=== PATIENT | female | born 1970 | race Caucasian/White ===

== ENCOUNTER 2020-11-01 11:57 | Outpatient (REF) | payer MEDICAID, SELFPAY | END 2020-11-01 11:58 | disposition home or self-care (01) | LOC: HO.LAB 11:57 | PROVIDERS: Visit Provider Internal Medicine | DX: Z20.822 Contact with and (suspected) exposure to COVID-19 (principal) | CPT/HCPCS: 36415; C9803; U0003; U0005 ==

== ENCOUNTER 2021-01-08 09:19 | Outpatient (REF) | payer MEDICAID, SELFPAY ==
[2021-01-08 09:47] LABS: COVID-19 Test Negative (Negative)
== END 2021-01-08 09:20 | disposition home or self-care (01) ==
LOC: HO.LAB 09:19
PROVIDERS: Visit Provider Internal Medicine
DX: Z20.822 Contact with and (suspected) exposure to COVID-19 (principal)
CPT/HCPCS: 36415; 87635; C9803

== ENCOUNTER 2021-01-24 15:01 | Outpatient (REF) | payer MEDICAID, SELFPAY ==
[2021-01-24 15:22] LABS: COVID-19 Test Negative (Negative); IDNOW Serial# 55D5AD1C
== END 2021-01-24 15:02 | disposition home or self-care (01) ==
LOC: HO.LAB 15:01
PROVIDERS: Visit Provider Internal Medicine
DX: Z20.822 Contact with and (suspected) exposure to COVID-19 (principal)
CPT/HCPCS: 36415; 87635; C9803

== ENCOUNTER 2023-03-19 10:56 | Outpatient (REF) | payer MEDICAID, SELFPAY ==
[2023-03-19 14:50] LABS: Estimated Average Glucose 171 mg/dL; Hemoglobin A1c % 7.6 %
[2023-03-19 16:10] LABS: Iron 76 mcg/dL (30-160); Percent Iron Saturation 26 % (15-50); Total Iron Binding Capacity 288 mcg/dL (228-428); Unsaturated Iron Binding 212 ug/dL
[2023-03-19 16:30] LABS: Ferritin 72 ng/mL (10-250); TSH reflex Free T4 1.36 uIU/mL (0.32-4.0)
[2023-03-24 07:13] LABS: Gliadin Deamidated IgA Ab <1.0 U/mL; Gliadin Deamidated IgG Ab <1.0 U/mL; Transglutaminase Ab IgG 1.3 U/mL; Transglutaminase IgA <1.0 U/mL
[2023-03-24 15:54] LABS: Immunoglobulin A 169 mg/dL (47-310)
[2023-03-25 15:53] LABS: Endomysial IgA Antibody Negative (Negative)
== END 2023-03-19 10:57 | disposition home or self-care (01) ==
LOC: HO.CHCLDS 10:56
PROVIDERS: Visit Provider Pediatrics
DX: R53.82 Chronic fatigue, unspecified (principal); G56.10 Other lesions of median nerve, unspecified upper limb
CPT/HCPCS: 36415; 82728; 82784; 83036; 83540; 84443; 86231; 86258; 86364

== ENCOUNTER 2023-04-18 13:55 | Outpatient (REF) | payer MEDICAID, SELFPAY ==
[2023-04-18 17:44] LABS: MANUAL DIFF FLAG NO
[2023-04-18 17:57] LABS: Basophils Percent Auto 0.2 % (0-2); Eosinophils Absolute Auto 0.1 X10*3/uL (0.0-0.4); Eosinophils Percent Auto 0.5 % (0-4); Hematocrit 38.4 % (37.0-47.0); Hemoglobin 12.4 g/dl (12.0-16.0); Imm Gran Abs Auto 0.03 X10*3/uL (0.00-0.03); Imm Gran Pct Auto 0.3 % (0.0-0.4); Lymphocytes Absolute Auto 2.6 X10*3/uL (1.2-4.9); Lymphocytes Percent Auto 23.7 % (20-40); Mean Corpuscular HGB Conc 32.3 g/dl (31.0-35.0); Mean Corpuscular Hemoglobin 28.9 pg (27.0-33.0); Mean Corpuscular Volume 89.5 fL (80.0-98.0); Mean Platelet Volume 10.7 fL (9.4-12.3); Monocytes Absolute Auto 0.7 X10*3/uL (0.1-1.2); Monocytes Percent Auto 6.1 % (2-11); Neutrophils Absolute Auto 7.6 x10*3/uL (2.0-8.3); Neutrophils Percent Auto 69.2 % (45-73); Platelet Count 285 X10*3/uL (160-400); Red Blood Count 4.29 X10*6/uL (4.20-5.50); Red Cell Distribution Width 13.7 % (11.0-16.0); White Blood Count 10.9 X10*3/uL (4.8-10.8)
[2023-04-18 18:11] LABS: Anion Gap 14 (12-20); Blood Urea Nitrogen 17 mg/dL (9-16); Calcium 9.7 mg/dL (8.4-10.2); Carbon Dioxide 25 mmol/L (22-29); Chloride 106 mmol/L (96-108); Estimated Glomerular Filt Rate > 60; Glucose Random 215 mg/dL (60-115); Magnesium 1.8 mg/dL (1.6-2.6); Potassium 3.7 mmol/L (3.3-5.1); Sodium 141 mmol/L (135-145)
[2023-04-18 18:27] LABS: TSH reflex Free T4 0.76 uIU/mL (0.32-4.0); Vitamin D 25-OH Total 52.1 ng/mL (>30)
== END 2023-04-18 13:56 | disposition home or self-care (01) ==
LOC: HO.CHCLDS 13:55
PROVIDERS: Visit Provider Internal Medicine
DX: R25.2 Cramp and spasm (principal); R53.83 Other fatigue
CPT/HCPCS: 36415; 80048; 82306; 83735; 84443; 85025

== ENCOUNTER 2023-08-22 11:51 | Outpatient (REF) | payer MEDICAID, SELFPAY ==
[2023-08-22 14:51] LABS: MANUAL DIFF FLAG NO
[2023-08-22 14:59] LABS: Basophils Percent Auto 0.3 % (0-2); Eosinophils Percent Auto 0.2 % (0-4); Hematocrit 41.4 % (37.0-47.0); Hemoglobin 13.1 g/dl (12.0-16.0); Imm Gran Abs Auto 0.04 X10*3/uL (0.00-0.03); Imm Gran Pct Auto 0.4 % (0.0-0.4); Lymphocytes Absolute Auto 2.7 X10*3/uL (1.2-4.9); Lymphocytes Percent Auto 25.9 % (20-40); Mean Corpuscular HGB Conc 31.6 g/dl (31.0-35.0); Mean Corpuscular Hemoglobin 28.2 pg (27.0-33.0); Mean Platelet Volume 9.9 fL (9.4-12.3); Monocytes Absolute Auto 0.6 X10*3/uL (0.1-1.2); Neutrophils Absolute Auto 6.9 x10*3/uL (2.0-8.3); Neutrophils Percent Auto 67.2 % (45-73); Platelet Count 318 X10*3/uL (160-400); Red Blood Count 4.65 X10*6/uL (4.20-5.50); Red Cell Distribution Width 14.2 % (11.0-16.0); White Blood Count 10.3 X10*3/uL (4.8-10.8)
[2023-08-22 15:11] LABS: Estimated Average Glucose 220 mg/dL; Hemoglobin A1c % 9.3 % (<6.0)
[2023-08-22 15:12] LABS: Anion Gap 15 (12-20); Blood Urea Nitrogen 13 mg/dL (9-16); Calcium 9.5 mg/dL (8.4-10.2); Carbon Dioxide 25 mmol/L (22-29); Chloride 102 mmol/L (96-108); Estimated Glomerular Filt Rate > 60; Glucose Random 214 mg/dL (60-115); Magnesium 2.2 mg/dL (1.6-2.6); Sodium 138 mmol/L (135-145)
[2023-08-22 15:30] LABS: Ferritin 105 ng/mL (10-250); TSH reflex Free T4 0.67 uIU/mL (0.32-4.0)
== END 2023-08-22 11:52 | disposition home or self-care (01) ==
LOC: CF 11:51
PROVIDERS: Pediatrics; Visit Provider Family Medicine
DX: G25.81 Restless legs syndrome (principal); E11.9 Type 2 diabetes mellitus without complications
CPT/HCPCS: 36415; 80048; 82728; 83036; 83735; 84443; 85025

== ENCOUNTER 2025-01-24 10:23 | Outpatient (REF) | payer MEDICAID, SELFPAY ==
--- NOTE | ~2025-01-24 | XR_ITS ---
EXAMINATION: XR CERVICAL SPINE CLINICAL INFORMATION: neck pain COMPARISON: None available. TECHNIQUE: 2 views of the cervical spine were obtained. FINDINGS: No significant scoliosis. Straightening of the normal lordosis. Normal alignment without subluxation. Craniocervical junction and C1-2 articulation are intact and aligned. No fractures, compression deformities, or suspicious bone lesions. Mild degenerative disc changes present C4-C7. Facets are normally aligned with mild multilevel facet degeneration. No prevertebral or paravertebral soft tissue abnormality. Imaged lung apices clear. XR/XR cervical spine 2V IMPRESSION: 1. No acute findings of the cervical spine. 2. Mild degenerative spondylosis. Electronically signed by: Brennen Escamilla MD 01/24/2025 10:43 AM EDT
--- OUTSIDE RECORDS SUMMARY | 2025-01-24 10:59 | XMS_ITS | Encounter Summary ---
Author Organization [employer] Address [address] [place] [address] Care Team Providers Care Pulp Mixer Name Role Phone Ericka Edmonds MD Primary Care Provider [phone] Encounter Details Date Type Department Care Team ([facility] st Contact Info) Description 01/24/2025 9:45 AM EDT Office Visit [facility] [address] [place] [address] CalderónMilton Davidson MD [address] [place] [address] Neck pain (Primary Dx); Type 2 diabetes mellitus without complication, without long-term current use of insulin ([facility]) Social History Tobacco Use Types Packs/Day Years Used Date Smoking Tobacco: Never Passive Smoke Exposure: Never Smokeless Tobacco: Never Depression Answer Date Recorded Patient Health Questionnaire-9 Score 6 01/04/2025 Patient Health Questionnaire-9 Score 6 01/04/2025 Last PHQ-9: Questionnaire Data Not on file 0 01/04/2025 Housing Stability Answer Date Recorded What is your housing situation today? I have yennylinwood norman 06/24/[address] you li ve. Do you have problems with any of the following? None of the above 06/24/2024 Food Insecurity Answer Date Recorded Within the past 12 months, y ou worried that your food would run out before you got money to buy more: Never True 12/23/2024 Within the past 12 months,th e food you bought just didn't last and you didn't have enough money to get more: Never True Transportation Answer Date Recorded In the past 12 months, has l ack of transportation kept you from medical appts, meetings, work or from getting things needed for daily living? No 06/24/2024 Utilities Answer Date Recorded In the past 12 months, has t he electric, gas, oil or water company threatened to shut off services in your home? No 06/24/2024 Depression Answer Date Recorded Patient Health Questionnaire-2 Score 0 01/04/2025 Internet Access Answer Date Recorded Internet Access Q1 Yes 06/24/2024 Internet Access Q2 Not on file 06/24/2024 Comments No Sex and Gender Information Value Date Recorded Sex Assigned at Female 07/08/2022 10:14 AM EDT Legal Sex Female 10:14 AM EDT Gender Identity Female 07/08/2022 10:14 AM EDT Sexual Orientation Straight 07/08/2022 10 :14 AM EDT documented as of this encounter Last Filed Vital Signs Vital Sign Reading Time Taken Comments Blood Pressure 132/78 01/24/2025 9:43 AM EDT Pulse 68 01/24/2025 9:43 AM EDT Temperature 37.1 ??C (98.7 ??F) 01/24/2025 9:43 AM ED T Respiratory Rate 16 01/24/2025 9:43 AM EDT Oxygen Saturation - - Inhaled Oxygen Concentration - - Weight 95.3 kg (210 lb) 01/24/2025 9:43 AM EDT Height 160 cm (5' 3 ) 01/24/2025 9:43 AM EDT Body Mass Index 37.2 01/24/2025 9:43 AM EDT documented in this encounter Plan of Treatment Upcoming Encounters Date Type Department Care Team (Late st Contact Info) Description 04/20/2025 10:00 AM EDT Office Visit [facility] OPTOMETRY [address] [place] [address] Vita Olmedo, OD [address] [place] [address] documented as of this encounter Procedures Procedure Name Priority Date/Time Associated Diagnosis Comments XR CERVICAL SPINE 2V Routine 01/24/2025 10:27 AM EDT POCT GLUCOSE Routine 01/24/2025 9:44 AM EDT Type 2 diabetes mellitus without complication, without long-term current use of insulin ([facility]) documented in this encounter Results * XR CERVICAL SPINE 2V (01/24/2025 10:27 AM EDT) Anatomical Region Laterality Modality Abdomen Radiographic Lida ging 01/24/2025 10:2 7 AM EDT Narrative 01/24/2025 10:46 AM EDT ? [facility] ?[address] ? [place] [address] ?XRay Report ? Signed ? Patient: Crissy Lombardi ?MR#: [id number] ? : 1970 ?Acct:[id number] ? Age/Sex: 54 / F ?ADM Date: 01/24/25 ? Loc: HO.HMGCX ? Attending Dr: Milton Mahan MD ? Ordering Physician: Milton Frias MD ?? Date of Service: 01/24/25 ?? Procedure(s): XR cervical spine 2V ?? Accession Number(s): [id number] ? cc: Ericka Edmonds MD; Milton Frias MD ? EXAMINATION: ?? XR CERVICAL SPINE ? CLINICAL INFORMATION: ?? neck pain ? COMPARISON: ?? None available. ? TECHNIQUE: ?? 2 views of the cervical spine were obtained. ? FINDINGS: ?? No significant scoliosis. Straightening of the normal lordosis. ?? Normal alignment without subluxation. ?? Craniocervical junction and C1-2 articulation are intact and aligned. ?? No fractures, compression deformities, or suspicious bone lesions. ? Mild degenerative disc changes present C4-C7. ?? Facets are normally aligned with mild multilevel facet degeneration. ? No prevertebral or paravertebral soft tissue abnormality. Imaged lung ?? apices clear. ? XR/XR cervical spine 2V ?? IMPRESSION: ? 1. No acute findings of the cervical spine. ?? 2. Mild degenerative spondylosis. ? Electronically signed by: ??Brennen Escamilla MD ??01/24/2025 10:43 AM EDT RP ? Dictated By: ?Brennen Escamilla MD ? Signed By: ?<Electronically signed by Brennen Escamilla MD in OV> ?01/24/25 1043 ? DD/ 1027 ? TD/TT: 01/24/25 1033 ? Sql Server Dba Developer: ? Procedure Note Edgar, Image - 01/24/2025 [facility] [place] [address] XRay Report Signed Patient: Ever Lombardi#: [id number] : 1970Acct:[id number] Age/Sex: 54 / FADM Date: 01/24/25 Loc: HO.HMGCX Attending Dr: Milton Mahan MD Ordering Physician: Milton Frias MD Date of Service: 01/24/25 Procedure(s): XR cervical spine 2V Accession Number(s): [id number] cc: Ericka Edmonds MD; Milton Frias MD EXAMINATION: XR CERVICAL SPINE CLINICAL INFORMATION: neck pain COMPARISON: None available. TECHNIQUE: 2 views of the cervical spine were obtained. FINDINGS: No significant scoliosis. Straightening of the normal lordosis. Normal alignment without subluxation. Craniocervical junction and C1-2 articulation are intact and aligned. No fractures, compression deformities, or suspicious bone lesions. Mild degenerative disc changes present C4-C7. Facets are normally aligned with mild multilevel facet degeneration. No prevertebral or paravertebral soft tissue abnormality. Imaged lung apices clear. XR/XR cervical spine 2V IMPRESSION: 1. No acute findings of the cervical spine. 2. Mild degenerative spondylosis. Electronically signed by: Brennen Escamilla MD 01/24/2025 10:43 AM EDT Dictated By: Brennen Escamilla MD Signed By: <Electronically signed by Brennen Escamilla MD in OV> 01/24/25 1043 DD/ 1027 TD/TT: 01/24/25 1033 Sql Server Dba Developer: Milton Mahan MD IMG XR PROCEDURES Edited Result - Final * (ABNORMAL) POCT Glucose (01/24/2025 9:44 AM EDT) Glucose Blood, POC 235(A) 60 - 200 mg/dL QC Media Lot # [id number] Lot# Expiration Date Blood Capillary blood specimen / Unknown 01/24/2025 9:44 AM EDT Milton Mahan MD POINT OF C ARE TEST ENTER/EDIT ORDERABLES Edited Result - Final documented in this encounter Visit Diagnoses Diagnosis Neck pain- Primary Cervicalgia Type 2 diabetes mellitus without complication, without long-term current use of insulin ([facility]) documented in this encounter Additional Health Concerns Assessment Noted Time PHQ-9 Depression Total Score: 6 01/05/20 25 9:50 AM EDT documented as of this encounter Care Teams Pulp Mixer Relationship Specialty Start Date End Date Ericka Edmonds MD [address] [place] [id number] PCP - General Family Medicine 09/08/18 documented as of this encounter
--- OUTSIDE RECORDS SUMMARY | 2025-01-24 10:59 | XMS_ITS | Encounter Summary ---
Author Organization [employer] Address [address] [place] [address] Care Team Providers Care Graphic Technician Name Role Phone Ericka Edmonds MD Primary Care Provider [phone] Encounter Details Date Type Department Care Team (Latest Contact Info) Description 01/24/2025 Travel Social History Tobacco Use Types Packs/Day Years Used Date Smoking Tobacco: Never Passive Smoke Exposure: Never Smokeless Tobacco: Never Depression Answer Date Recorded Patient Health Questionnaire-9 Score 6 01/04/2025 Patient Health Questionnaire-9 Score 6 01/04/2025 Last PHQ-9: Questionnaire Data Not on file 0 01/04/2025 Housing Stability Answer Date Recorded What is your housing situation today? I have yenny norman 06/24/[address] you [...] AM EDT documented as of this encounter Plan of Treatment Upcoming Encounters Date Type Department Care Team (Late st Contact Info) Description 04/20/2025 10:00 AM EDT Office Visit [facility] OPTOMETRY [address] [place], [place] [id number] Honorio, Vita, OD [address] [place] [address] documented as of this encounter Visit Diagnoses Not on filedocumented in this encounter Additional Health Concerns Assessment Noted Time PHQ-9 Depression Total Score: 6 01/05/20 25 9:50 AM EDT documented as of this encounter Care Teams Graphic Technician Relationship Specialty Start Date End Date Ericka Edmonds MD [address] [place] [address] PCP - General Family Medicine 09/08/18 documented as of this encounter
--- OUTSIDE RECORDS SUMMARY | 2025-01-24 10:59 | XMS_ITS | Encounter Summary ---
Author Organization [employer] Address [address] [place] [address] Care Team Providers Care Raw Sampler Name Role Phone Ericka Edmonds MD Primary Care Provider [phone] Encounter Details Date Type Department Care Team ([facility] st Contact Info) Description 07/18/2023 Abstract [facility] [address] [place] [address] Aylin Carrion Social History Tobacco Use Types Packs/Day Years Used Date Smoking Tobacco: Never Passive Smoke Exposure: Never Smokeless Tobacco: Never Depression Answer Date Recorded Patient Health Questionnaire-9 Score 2 04/30/2023 Housing Stability Answer Date Recorded What is your housing situation today? I have yenny norman 06/23/[address] you li ve. Do you have problems with any of the following? None of the above 06/23/2023 Food Insecurity Answer Date Recorded Within the past 12 months, y ou worried that your food would run out before you got money to buy more: Sometimes True 2022 Within the past 12 months,th e food you bought just didn't last and you didn't have enough money to get more: Never True 06/23/2023 Transportation Answer Date Recorded In the past 12 months, has l ack of transportation kept you from medical appts, meetings, work or from getting things needed for daily living? No 06/23/2023 Utilities Answer Date Recorded In the past 12 months, has t he electric, gas, oil or water company threatened to shut off services in your home? No 06/23/2023 Depression Answer Date Recorded Patient Health Questionnaire-2 Score 1 04/30/2023 Comments Unknown Sex and Gender Information Value Date Recorded [...] Office Visit [facility] OPTOMETRY [address] [place] [address] Honorio, Vita, OD [address] [place] [address] documented as of this encounter Procedures Procedure Name Priority Date/Time Associated Diagnosis Comments COLONOSCOPY Routine 07/04/2022 documented in this encounter Results * Hm Colonoscopy (07/04/2022) Colonoscopy Normal Normal Narrative Aylin Carrion - 07/04/2022 Recommended 3 year follow up us Historical Provider HEALTH MAINTENANCE Edited Result - Final documented in this encounter Visit Diagnoses Not on filedocumented in this encounter Additional Health Concerns Assessment Noted Time PHQ-9 Depression Total Score: 2 04/30/20 23 9:15 AM EDT documented as of this encounter Care Teams Raw Sampler Relationship Specialty Start Date End Date Ericka Edmonds MD [address] [place] [address] PCP - General Family Medicine 09/08/18 documented as of this encounter
--- OUTSIDE RECORDS SUMMARY | 2025-01-24 10:59 | XMS_ITS | Clinical Summary ---
Author Organization [employer] Address [address] [facility] [address] [place] [address] Care Team Providers Care Slabbing Machine Operator Name Role Phone Ericka Edmonds MD Primary Care Provider [phone] Allergies Active Allergy Reactions Criticality Noted Date Comments Azithromycin Rash High 03/02/2013 Other reaction(s): Hives, SOB Clarithromycin Rash Low 04/27/2024 Dulaglutide 10/22/2022 Penicillin V Unknown 08/24/2010 Penicillins Rash Low 08/24/2010 Medications fluticasone (Flonase) 50 MCG/ACT nasal spray Administer 1 spray into each nostril in the morning. 16 g 3 023 Active Elastic Bandages & Supports (TruForm Stockings 10-20mmHg) miscIndications: Venous insufficiency Thigh high 10-20 mm/Hg compression stockings to wear daily prior to getting out of bed. 1 each 023 Active Magnesium 400 MG capsule Take 1 capsule orally daily 90 capsule 3 023 Active Alcohol Swabs (SM Alcohol Prep) 70 % pads Apply 1 Units topically 3 times daily. USE 3 TIMES DAILY TO CHECK BLOOD SUGARS 100 each 11 023 Active metoprolol succinate XL (Toprol-XL) 25 MG 24 hr tablet Take 25 mg by mouth in the morning. 023 Active triamcinolone (Kenalog) 0.025 % cream Apply topically 2 times daily. 30 g 023 Active methocarbamol (Robaxin) 750 MG tablet TAKE ONE TABLET BY MOUTH FOUR TIMES DAILY FOR 10 DAYS 40 tablet 023 Active pramipexole (Mirapex) 0.125 MG tablet Take 1 tablet (0.125 mg) by mouth 2 times daily. 60 tablet 023 Active ketotifen (Zaditor) 0.025 % ophthalmic solution INSTILL ONE DROP IN EACH EYE EVERY DAY FOR ALLERGY 10 mL 3 024 Active fexofenadine (Trini) 180 MG tablet Take 1 tablet (180 mg) by mouth in the morning. 90 tablet 3 024 Active triamcinolone (Kenalog) 0.025 % cream Apply topically 2 times daily. 30 g 3 024 Active lidocaine (Lidoderm) 5 % patchIndications :Trochanteric bursitis of left hip APPLY 1 PATCH TO SKIN, LEAVE ON FOR 12 HOURS NEEDED FOR PAIN 30 patch 5 024 Active albuterol (Ventolin HFA) 108 (90 Base) MCG/ACT inhaler TAKE 2 PUFFS BY MOUTH EVERY 4 HOURS NEEDED FOR WHEEZE 18 g 1 024 Active glucose blood (FREESTYLE LITE) test strip USE TO TEST BLOOD SUGAR 3 TIMES A DAY 100 strip 8 024 Active TRUEplus Lancets 33G misc TEST BLOOD SUGAR 3 TIMES A DAY 100 each 8 024 Active fluticasone (Flonase Allergy Relief) 50 MCG/ACT nasal sprayIndications :Allergy, initial encounter Administer 1 spray into each nostril Once per day. Shake gently. Before first use, prime pump. After use, clean tip and replace cap. 16 g 12 024 2024 Active omega-3 1000 MG capsule capsule TAKE 1 CAPSULE BY MOUTH TWICE A DAY 180 capsule 1 024 Active melatonin 5 MG tablet TAKE 2 TABLETS BY MOUTH AT BEDTIME 60 tablet 5 024 Active cholecalciferol VITAMIN D (Vitamin D-3) 50 MCG (2000 UT) capsuleIndicatio ns:Adjustment disorder with depressed mood TAKE 1 CAPSULE BY MOUTH TWICE A DAY 180 capsule 1 024 Active loratadine (Claritin) 10 MG tabletIndication s:Allergy, initial encounter TAKE 1 TABLET BY MOUTH EVERY DAY IN THE MORNING 90 tablet 1 024 Active metFORMIN (Glucophage) 1000 MG tablet TAKE 1 TABLET BY MOUTH TWICE A DAY 180 tablet 1 024 Active acetaminophen (Tylenol 8 Hour) 650 MG ER tabletIndication s:Disorder of skeletal muscle TAKE 1 TABLET BY MOUTH EVERY 8 HOURS NEEDED 60 tablet 5 025 Active hydroCHLOROthiaz miguelangel (HYDRODiuril) 25 MG tabletIndication s:Benign essential hypertension TAKE 1 TABLET BY MOUTH EVERY DAY IN THE MORNING 90 tablet 1 025 Active Ketotifen Fumarate 0.035 % solution INSTILL 1 DROP INTO EACH EYE ONCE DAILY FOR ALLERGIES 10 mL 3 025 Active magnesium oxide (Mag-Ox) 400 (240 Mg) MG tablet TAKE 1 TABLET BY MOUTH EVERY DAY 90 tablet 1 025 Active pregabalin (Lyrica) 150 MG capsule TAKE 1 CAPSULE BY MOUTH TWICE A DAY 60 capsule 3 025 Active ibuprofen 800 MG tabletIndication s:Median nerve neuritis, unspecified laterality TAKE 1 TABLET BY MOUTH 3 TIMES A DAY WITH FOOD NEEDED FOR PAIN 90 tablet 025 Active pramipexole (Mirapex) 0.125 MG tabletIndication s:RLS (restless legs syndrome) TAKE 1 TABLET BY MOUTH TWICE A DAY 60 tablet 025 Active Mounjaro 2.5 MG/0.5ML solution auto-injector INJECT ONE PEN (=2.5MG) SUBCUTANEOUSLY ONCE A WEEK DIRECTED Active omeprazole (PriLOSEC) [address] capsuleIndicatio ns:Gastroesophag eal reflux disease without esophagitis TAKE 1 CAPSULE BY MOUTH EVERY DAY BEFORE BREAKFAST 90 capsule 1 025 Active predniSONE (Deltasone) 20 MG tablet Take 2 tablets (40 mg) by mouth Once per day for 5 days. 10 tablet 025 2024 Active cyclobenzaprine (Flexeril) 10 MG tablet Take 1 tablet (10 mg) by mouth 3 times daily for 10 days. 30 tablet 025 2024 Active valACYclovir (Valtrex) 1 g tablet TAKE ONE TABLET BY MOUTH EVERY TWELVE HOURS UNTIL FINISHED. 022 2024 Discontinued(R eorder (will not trigger notification to Pharmacy)) omeprazole (PriLOSEC) [address] capsule Take 1 capsule (40 mg) by mouth before breakfast. 90 capsule 1 023 2024 Discontinued(T herapy completed) dulaglutide (Trulicity) 4.5 MG/0.5ML solution pen-injector Inject 4.5 mg under the skin 1 (one) time per week. 4 each 024 2024 Discontinued omeprazole (PriLOSEC) [address] capsuleIndicamega ns:Gastroesophag eal reflux disease without esophagitis TAKE 1 CAPSULE BY MOUTH EVERY DAY BEFORE BREAKFAST 90 capsule 1 024 2024 Discontinued ibuprofen 800 MG tabletIndication s:Median nerve neuritis, unspecified laterality TAKE 1 TABLET BY MOUTH 3 TIMES A DAY WITH FOOD NEEDED FOR PAIN 90 tablet 025 2024 Discontinued pramipexole (Mirapex) 0.125 MG tabletIndication s:RLS (restless legs syndrome) TAKE 1 TABLET BY MOUTH TWICE A DAY 60 tablet 025 2024 Discontinued valACYclovir (Valtrex) 1 g tablet Take 1 tablet (1,000 mg) by mouth 2 times daily for 10 days. 20 tablet 025 2024 Active Problems Problem Noted Date Diagnosed Date RLS (restless legs syndrome) 08/13/2023 Assessment & Plan (08/13/2023 3:42 PM EST): Patient that presented visit with complaints of RLS will be prescribed Pramipexole to ease concern. In addition, patient will be sent for labs for further evaluation. -Labs: Basic Met. Panel, CBC, Ferritin, Magnesium, TSH/FT4. Follow up with PCP. Lumbar radiculopathy 07/15/2023 07/15/2023 Class 2 obesity 07/15/2023 07/15/2023 Postviral fatigue syndrome 10/02/2022 Acute cough 10/02/2022 COVID 10/02/2022 Assessment & Plan (10/02/2022 9:03 AM EST): Patient refers symptoms started yesterday, tested positive for covid, refers having cough, fatigue, body aches, fever/chills. Kaylah offered, risk vs benefits discussed, told to remain well hydrated, in case of worsening symptoms visit er. Acute pharyngitis due to other specified organis ms 10/02/2022 Assessment & Plan (10/02/2022 9:07 AM EST): Patient was prescribed cleocyn but refers having episode of diarrhea, she completed 3 day of therapy, will provide doxycicline for 2 days Trochanteric bursitis of left hip 05/08/2018 Lumbar back pain with radicu lopathy affecting left lower extremity 02/11/2018 Median nerve neuritis 07/29/2017 Adjustment disorder with depressed mood 09/19/19 16 Benign essential hypertension 09/19/2015 Disorder of skeletal muscle 01/19/2014 Type 2 diabetes mellitus wit hout complication, without long-term current use of insulin 04/22/2013 Hypertension 02/19/2012 Assessment & Plan (08/13/2023 3:41 PM EST): Uncontrolled: patient presented visit with an elevated blood pressure with readings of 148/98 mmHg. Elevated reading could be due to current chief complaint. However if readings seem to be persistent, will adjust blood pressure medications. Obesity 02/19/2012 Resolved Problems Problem Noted Date Diagnosed Date Resolved Date Fatigue due to exposure 10/02/202209/09 Encounters Date Type Department Care Team Description 01/24/2025 9:45 AM EDT Office Visit [facility] [address] [place] [address] Milton Frias MD Neck pain (Primary Dx); Type 2 diabetes mellitus without complication, without long-term current use of insulin ([facility]) 01/24/2025 Travel 01/24/2025 Telephone [facility] [address] [place] [address] Ericka Edmonds MD Nurse Triage 01/22/2025 Refill [facility] [address] [place] [address] Ericka Edmonds MD Gastroesophageal reflux disease without esophagitis 01/04/2025 9:15 AM EDT Office Visit [facility] [address] [place] [address] Ericka Edmonds MD Breast cancer screening by mammogram (Primary Dx); Type 2 diabetes mellitus without complication, without long-term current use of insulin ([facility]); Transaminitis; Dietary counseling; Exercise counseling; Benign essential hypertension; Lumbar back pain with radiculopathy affecting left lower extremity; Routine general medical examination at a health care facility 01/04/2025 Travel 01/02/2025 Refill [facility] [address] [place] [address] Ericka Edmonds MD RLS (restless legs syndrome) 12/27/2024 Refill [facility] [address] [place] [address] Ericka Edmonds MD Median nerve neuritis, unspecified laterality 12/23/2024 Patient Outreach [facility] [address] [place] [address] Ericka Edmonds MD Pre-visit Planning (SDOH screening negative and Tobacco screening negative) 12/13/2024 Refill [facility] [address] [place] [address] Ericka Edmonds MD 12/02/2024 Telephone [facility] [address] [place] [address] Ericka Edmonds MD 12/02/2024 Orders Only [facility] [address] [place] [address] Luz Flannery MD 11/27/2024 Refill [facility] [address] [place] [address] Ericka Edmonds MD RLS (restless legs syndrome) 11/19/2024 Population Health Risk Score [facility] Department [address] [phone] Provider, Population Health Generic 11/13/2024 Refill [facility] [address] [place] [address] Milton Frias MD 10/27/2024 Refill [facility] [address] [place] [address] Ericka Edmonds MD RLS (restless legs syndrome) 10/27/2024 Refill [facility] [address] [place] [address] Milton Frias MD Benign essential hypertension; Median nerve neuritis, unspecified laterality from Last 3 Months Immunizations Immunization Administration Dates Next Due Influenza injectable quadriv alent IIV4 with preservative 07/14/2019,08/13/2018,07/15/2017,07/10,06/09/2015 Influenza injectable quadriv alent preservative free 06/26/2023,05/30/2022,08/01/2020 Influenza, IIV3, injectable 06/17/2014 Influenza, Split (incl. jaylen fied surface antigen) 05/18/2013,05/14/2012 Influenza, seasonal, injecta ble, preservative free 06/24/2024 MMR 04/01/2002 Pfizer Covid-19 Vaccine 12+ 12/13/2020, 1 Pneumococcal Polysaccharide PPSV23 05/18/2013, TD (adult), 2 Lf tetanus tox oid, preservative free, adsorbed 09/10/1993 Tdap 07/14/2019 Zoster, Recombinant 01/03/2023,11/01/2022 Social History Tobacco Use Types Packs/Day Years Used Date Smoking Tobacco: Never Passive Smoke Exposure: Never Smokeless Tobacco: Never Tobacco Cessation:Counseling Given: Not Answered Depression Answer Date Recorded Patient Health Questionnaire-9 Score 6 01/04/2025 Patient Health Questionnaire-9 Score 6 01/04/2025 Last PHQ-9: Questionnaire Data Not on file 0 01/04/2025 Housing Stability Answer Date Recorded What is your housing situation today? I have yenny emerson 06/24/[address] you li [...] Orientation Straight 07/08/2022 10 :14 AM EDT Last Filed Vital Signs Vital Sign Reading Time Taken Comments Blood Pressure 132/78 01/24/2025 9:43 AM EDT Pulse 68 01/24/2025 9:43 AM EDT Temperature 37.1 ??C (98.7 ??F) 01/24/2025 9:43 AM ED T Respiratory Rate 16 01/24/2025 9:43 AM EDT Oxygen Saturation 97% 06/24/2024 9:22 AM EDT Inhaled Oxygen Concentration - - Weight 95.3 kg (210 lb) 01/24/2025 9:43 AM EDT Height 160 cm (5' 3 ) 01/24/2025 9:43 AM EDT Body Mass Index 37.2 01/24/2025 9:43 AM EDT Plan of Treatment Upcoming Encounters Date Type Department Care Team (Late st Contact Info) Description 04/20/2025 10:00 AM EDT Office Visit [facility] [address] [place] [address] Honorio, Vita, OD [address] [place] [address] Health Maintenance Due Date Last Done Comments CT Colonography 1969 FIT DNA/Cologuard 1969 FIT 1970 FOBT 1970 HIV Screening 1970 Sigmoidoscopy 1970 Disability Screening 1969 Hepatitis C Screening 1987 Hepatitis B Vaccines (1 of 3 - 19+ 3-dose series) 1988 Pneumococcal Vaccine: 50+ Years (2 of 2 - PCV) 05/18/2014 05/18/2013, 03/05/2013 Lipid Panel 05/30/2023 05/30/2022, 09/09, 01/10/2021 COVID-19 Vaccine ( season) 2024 08/06/2023, 12/13/2020, 11/21/2020 Diabetes: Hemoglobin A1C 03/03/2025 025, 12/01/2024, 06/24/2024, Additional history exists Alcohol/Substance Use Screening 06/24/2025 06/24/2024 Colonoscopy 07/04/2025 07/04/2022 Colorectal Cancer Screening 07/04/2025 Cervical Cancer Screening 08/01/2025 HPV/Cotest 08/01/2025 08/01/2020 Pap Smear 08/01/2025 08/01/2020 Eye Exam 11/09/2025 11/10/2023, 03/0 12/2023, 11/10/2023, Additional history exists Diabetes: Urine Protein Screening 12/01/2025 12/01/2024, 05/30/2022, 10/04/2021, Additional history exists SDOH Screening 12/23/2025 12/23/2024 Depression Screening 01/04/2026 01/04/2025, 01/05/20 25 Diabetes: Foot Exam 01/04/2026 01/04/2025, 01/04/2025, 01/04/2025, Additional history exists Tobacco Screening 01/04/2026 01/04/2025 Mammogram 01/14/2027 01/14/2025, 12/18/2023 DTaP/Tdap/Td Vaccines (2 - Td or Tdap) 07/14/2029 07/14/2019, 09/10/1993 RSV Patients and Patients Aged 60 years or older (1 - 1-dose 75+ series) 2044 Zoster Vaccines Completed 01/03/2023, 11/01/2022 Influenza Vaccine Completed 06/24/2024, , 05/30/2022, Additional history exists HIB Vaccines Aged Out No longer eligi ble based on patient's age to complete this topic HPV Vaccines Aged Out No longer eligi ble based on patient's age to complete this topic Hepatitis A Vaccines Aged Out No long er eligible based on patient's age to complete this topic IPV Vaccines Aged Out No longer eligi ble based on patient's age to complete this topic Meningococcal B Vaccine Aged Out No l onger eligible based on patient's age to complete this topic Meningococcal Vaccine Aged Out No nunu ginny eligible based on patient's age to complete this topic RSV under 20 months Aged Out No longe r eligible based on patient's age to complete this topic Rotavirus Vaccines Aged Out No longer eligible based on patient's age to complete this topic Procedures Procedure Name Priority Date/Time Associated Diagnosis Comments XR CERVICAL SPINE 2V Routine 01/24/2025 10:27 AM EDT POCT GLUCOSE Routine 01/24/2025 9:44 AM EDT Type 2 diabetes mellitus without complication, without long-term current use of insulin ([facility]) HM MAMMOGRAPHY Routine 01/14/2025 POCT GLUCOSE Routine 01/04/2025 9:37 AM EDT Type 2 diabetes mellitus without complication, without long-term current use of insulin ([facility]) HEMOGLOBIN A1C Routine 12/01/2024 9:01 AM EDT COMPREHENSIVE METABOLIC PANEL Routine 12/01/2024 9:00 AM EDT ALBUMIN/CREATININE RATIO, TIMED URINE Routine 12/01/2024 8:58 AM EDT HM COLONOSCOPY Routine 07/04/2022 LIPID PANEL, STANDARD Routine 05/30/2022 10:57 AM EDT HPV MRNA E6/E7 Routine 08/01/2020 1:18 PM EST THINPREP PAP Routine 08/01/2020 1:18 PM EST from Last 3 Months or Most Recently Relevant to Health Maintenance Results * XR CERVICAL SPINE 2V (01/24/2025 10:27 AM EDT) Anatomical Region Laterality Modality Abdomen Radiographic Lida ging 01/24/2025 10:2 7 AM EDT Narrative 01/24/2025 10:46 AM EDT ? [facility] ?[address] [facility] . ? [place] [address] ?XRay Report ? Signed ? Patient: Lombardi,Crissy ?MR#: [id number] ? : 1970 ?Acct:[id number] ? Age/Sex: 54 / F ?ADM Date: 01/24/25 ? Loc: HO.HMGCX ? Attending Dr: Milton Mahan MD ? Ordering Physician: Milton Frias MD ?? Date of Service: 01/24/25 ?? Procedure(s): XR cervical spine 2V ?? Accession Number(s): [id number] ? cc: Ericka Edmonds MD; Milton Frias [...] DD/ 1027 ? TD/TT: 01/24/25 1033 ? Priest: ? Procedure Note Donotuseinterpreter, Image - 01/24/2025 [facility] [place] [address] XRay Report Signed Patient: Ever Lombardi#: [id number] : 1970Acct:[id number] Age/Sex: 54 / FADM Date: 01/24/25 Loc: HO.HMGCX Attending Dr: Milton Mahan MD Ordering Physician: Milton Frias MD Date of Service: 01/24/25 Procedure(s): XR cervical spine 2V Accession Number(s): [id number] cc: Ericka Edmonds MD; Milton Frias MD [...] 01/24/25 1043 DD/ 1027 TD/TT: 01/24/25 1033 Priest: us Milton Mahan MD IMG XR PROCEDURES Edited Result - Final * (ABNORMAL) POCT Glucose (01/24/2025 9:44 AM EDT) Only the most recent of2 resultswithin the time period is included. Pathologist [facility] Glucose Blood, POC 235(A) 60 - 200 mg/dL QC Media Lot # [id number] Lot# Expiration Date 439 Blood Capillary blood specimen / Unknown 01/24/2025 9:44 AM EDT Result [facility] Milton Mahan MD POINT OF C ARE TEST ENTER/EDIT ORDERABLES Edited Result - Final * Mammography (01/14/2025) Mammogram Normal Normal, Abnormal, BIRADS 1 , BIRADS 2 Anatomical Region Laterality Modality Other Result [facility] Ericka Edmonds MD HEALTH MAINTENANCE Final Resu lt * Hemoglobin A1c (12/01/2024 9:01 AM EDT) Blood Venous blood specimen / Unknown Result [facility] Provider LAB BLOOD ORDERABLES Liana l Result * Comprehensive Metabolic Panel (12/01/2024 9:00 AM EDT) Blood Venous blood specimen / Unknown Result [facility] Provider LAB BLOOD ORDERABLES Liana l Result * Albumin/Creatinine Ration, Timed Urine (12/01/2024 8:58 AM EDT) Urine Urine specimen obtained by clean catch procedure / Unknown Result [facility] Provider LAB URINE ORDERABLES Liana l Result * Colonoscopy (07/04/2022) Pathologist [facility] Colonoscopy Normal Normal Narrative Aylin Carrion - 07/04/2022 Recommended 3 year follow up Result [facility] Provider HEALTH MAINTENANCE Edited Result - Final * (ABNORMAL) LIPID PANEL, STANDARD (05/30/2022 10:57 AM EDT) Pathologist [facility] Chol/HDLC Ratio 3.5 <5.0 (calc) [facility] Cholesterol, Total 184 <200 mg/dL [facility] HDL Cholesterol 53 > OR = 50 mg/dL [facility] LDL Cholesterol 101(H) mg/dL (calc) [facility] Comment: Reference range: <100 ?? Desirable range <100 mg/dL for primary prevention; ?? <70 mg/dL for patients with CHD or diabetic patients ?? with > or = 2 CHD risk factors. ?? LDL-C is now calculated using the Sarahi ?? calculation, which is a validated novel method providing ?? better accuracy than the Friedewald equation in the ?? estimation of LDL-C. ?? Brayden NIEVES et al. JALEN. 2013;310(19): 3343-9160 ?? (http://education.[employer]/faq/FYN426) Non-HDL Cholesterol 131(H) <130 mg/dL (calc) [facility] Comment: For patients with diabetes plus 1 major ASCVD risk ?? factor, treating to a non-HDL-C goal of <100 mg/dL ?? (LDL-C of <70 mg/dL) is considered a therapeutic ?? option. Triglycerides 188(H) <150 mg/dL [facility] 05/30/2022 10:5 7 AM EDT Ericka Edmonds MD LAB BLOOD ORDERABLES Final Re sult [facility] [address] [place] [address], * THINPREP PAP (08/01/2020 1:18 PM EST) Clinical Information: None given [facility] COMMENT SEE COMMENT [facility] Comment: EXPLANATORY NOTE: ? The Pap is a screening test for cervical cancer. It is ?? not a diagnostic test and is subject to false negative ?? and false positive results. It is most reliable when a ?? satisfactory sample, regularly obtained, is submitted ?? with relevant clinical findings and history, and when ?? the Pap result is evaluated along with historic and ?? current clinical information. ?? [facility] : SEE COMMENT [facility] Comment: DMM, CT(ASCP) CT screening location: [facility] ??[address] Interpretation/R esult: Negative for intraepithelial lesion or malignancy. [facility] LMP: NONE GIVEN [facility] Prev. BX: NONE GIVEN [facility] Prev. PAP: NONE GIVEN [facility] SOURCE: None given [facility] Statement Of Adequacy: SEE COMMENT [facility] Comment: Satisfactory for evaluation. Endocervical/transformation zone component present. Age and/or menstrual status not provided 08/01/2020 1:18 PM EST [facility] ORDERABLES Final Result Performing Organization Address [facility] de Phone Number [facility] [address] * HPV mRNA E6/E7 (08/01/2020 1:18 PM EST) HPV nRNA E6/E7 Not Detected Not Detected [facility] Comment: This test was performed using the APTIMA HPV Assay ([employer] This assay detects E6/E7 viral messenger RNA (mRNA) from 14 high-risk HPV types (16,18,31,33,35,39,45,51,52,56,58,59,66,68). ?? The analytical performance characteristics of this assay have been determined by [employer]. The modifications have not been cleared or approved by the FDA. This assay has been validated pursuant to the CLIA regulations and is used for clinical purposes. 08/01/2020 1:18 PM EST [facility] LAB BLOOD ORDERABLES Liana l Result Performing Organization Address [facility] Co de Phone Number [facility] [address] from Last 3 Months or Most Recently Relevant to Health Maintenance Insurance [facility] C[facility] * Guarantor: Crissy Lombardi Account Type Relation to Patient Date of Phone Billing Address Personal/Family Self KATIE PARRA13 * Guarantor: Crissy Lombardi Account Type Relation to Patient Date of Phone Billing Address Personal/[place] [address] * Guarantor: Lombardi Crissy Account Type Relation to Patient Date of Phone Billing Address Personal/Family Self KATIE PARRA13 Care Teams Slabbing Machine Operator Relationship Specialty Start Date End Date Ericka Edmonds MD [address] [place] [address] [place]g [id number] PCP - General Family Medicine 09/08/18
--- OUTSIDE RECORDS SUMMARY | 2025-01-24 11:00 | XMS_ITS | Encounter Summary ---
Author Organization [employer] Address [address] [facility] 7t [place] [address] Care Team Providers Care Director Human Services Name Role Phone Ericka Edmonds MD Primary Care Provider [phone] Reason for Visit * Reason Onset Date Comments ER Follow-up 11/27/2023 Encounter Details Date Type Department Care Team ([facility] st Contact Info) Description 11/27/2023 Telephone [facility] MEDICINE [address] [place] [address] Ericka Edmonds MD [address] [place], [place] [id number] ER Follow-up Social History Tobacco Use Types Packs/Day Years Used Date Smoking Tobacco: Never Passive Smoke Exposure: Never Smokeless Tobacco: Never Depression Answer Date Recorded Patient Health Questionnaire-9 Score 0 09/17/2023 Patient Health Questionnaire-9 Score 0 09/17/2023 Last PHQ-9: Questionnaire Data Not on file 0 09/17/2023 Housing Stability Answer Date Recorded What is [...] Date Recorded Patient Health Questionnaire-2 Score 0 09/17/2023 Comments No Sex and Gender Information Value Date Recorded Sex Assigned at Female 07/08/2022 10:14 AM EDT Legal Sex Female 10:14 AM EDT Gender Identity Female 07/08/2022 10:14 AM EDT Sexual Orientation Straight 07/08/2022 10 :14 AM EDT documented as of this encounter Miscellaneous Notes * Telephone Encounter - Marino Bo RN - 11/27/2023 4:21 PM EDT T/C to pt. For below message, pt. Has recent ED visit at [facility] for SVT (supraventricular tachycardia). Pt. Schedule for ED follow up on 12/09. Pt. Also advised to go to nearest ED in case of any new orworsening symptoms. Pt. Verbally agreed and understood. ED discharge summery is in opt.'s chart. * Telephone Encounter - Jacinto Green - 11/27/2023 10:43 AM EDT Patient calling to report ED visit on : Date: 11/18/23 Hospital: [facility] Seen for: Heart attack Patient advised will forward to team nurse for follow up Czech Speaker documented in this encounter Plan of Treatment Upcoming Encounters Date Type Department Care Team (Late st Contact Info) Description 04/20/2025 10:00 AM EDT Office Visit [facility] OPTOMETRY [address] [place], [place] [phone] HonorioVita correa, OD [address] [place], [place] [phone] documented as of this encounter Visit Diagnoses Not on filedocumented in this encounter Additional Health Concerns Assessment Noted Time PHQ-9 Depression Total Score: 0 09/17/19 24 11:41 AM EST documented as of this encounter Care Teams Director Human Services Relationship Specialty Start Date End Date Ericka Edmonds MD [address] [place] [address] PCP - General Family Medicine 09/08/18 documented as of this encounter
--- OUTSIDE RECORDS SUMMARY | 2025-01-24 11:00 | XMS_ITS | Encounter Summary ---
Author Organization [employer] Address [address] [place] [address] Care Team Providers Care Nailer Machine Name Role Phone Ericka Edmonds MD Primary Care Provider [phone] Encounter Details Date Type Department Care Team ([facility] st Contact Info) Description 12/19/2023 Orders Only [facility] CHC MED & PEDS [address] [place] [address] Provider, MD Luz Social History Tobacco Use Types Packs/Day Years Used Date Smoking Tobacco: Never Passive Smoke Exposure: Never Smokeless Tobacco: Never Depression Answer Date Recorded Patient Health Questionnaire-9 Score 0 09/17/2023 Patient Health Questionnaire-9 Score 0 09/17/2023 Last PHQ-9: Questionnaire Data Not on file 0 09/17/2023 Housing Stability Answer Date Recorded What is your housing situation today? I have [employer]an 06/23/[address] you [...] Description 04/20/2025 10:00 AM EDT Office Visit [facility] OPTOMETRY [address] [place], [place] [phone] Honroio, Vita, OD [address] [place] [address] documented as of this encounter Procedures Procedure Name Priority Date/Time Associated Diagnosis Comments MAMMOGRAPHY SCREENING Routine 12/18/2023 9:00 AM EDT documented in this encounter Results * MAMMOGRAPHY SCREENING (12/18/2023 9:00 AM EDT) Anatomical Region Laterality Modality Breast Left Mammography us Historical Provider MD CARABALLO BI PROCEDURES Final R esult documented in this encounter Visit Diagnoses Not on filedocumented in this encounter Additional Health Concerns Assessment Noted Time PHQ-9 Depression Total Score: 0 09/17/19 24 11:41 AM EST documented as of this encounter Care Teams Nailer Machine Relationship Specialty Start Date End Date Ericka Edmonds MD [address] [place] [address] PCP - General Family Medicine 09/08/18 documented as of this encounter
--- OUTSIDE RECORDS SUMMARY | 2025-01-24 11:00 | XMS_ITS | Encounter Summary ---
Author Organization [employer] Address [address] 7[address] [place] [address] Care Team Providers Care Spline Rolling Machine Job Setter Name Role Phone Ericka Edmonds MD Primary Care Provider [phone] Encounter Details Date Type Department Care Team ([facility] st Contact Info) Description 12/02/2024 Orders Only [facility] CHC MED & PEDS [address] [place] [address] Provider, MD Luz Social History Tobacco Use [...] got money to buy more: Sometimes True 2023 Within the past 12 months,th e food you bought just didn't last and you didn't have enough money to get more: Never True 06/24/2024 Transportation Answer Date Recorded In the past [...] Recorded Patient Health Questionnaire-2 Score 0 09/17/2023 Internet Access Answer Date Recorded Internet Access [...] 10:00 AM EDT Office Visit [facility] OPTOMETRY [address] [place], [place] [phone] Honorio, Vita, OD [address] [place] [address] documented as of this encounter Procedures Procedure Name Priority Date/Time Associated Diagnosis Comments HEMOGLOBIN A1C Routine 12/01/2024 9:01 AM EDT COMPREHENSIVE METABOLIC PANEL Routine 12/01/2024 9:00 AM EDT ALBUMIN/CREATININE RATIO, TIMED URINE Routine 12/01/2024 8:58 AM EDT documented in this encounter Results * Hemoglobin A1c (12/01/2024 9:01 AM EDT) Blood Venous blood specimen / Unknown us Historical Provider LAB BLOOD ORDERABLES Liana l Result * Comprehensive Metabolic Panel (12/01/2024 9:00 AM EDT) Blood Venous blood specimen / Unknown Historical Provider LAB BLOOD ORDERABLES Liana l Result * Albumin/Creatinine Ration, Timed Urine (12/01/2024 8:58 AM EDT) Urine Urine specimen obtained by clean catch procedure / Unknown us Historical Provider LAB URINE ORDERABLES Liana l Result documented in this encounter Visit Diagnoses Not on filedocumented in this encounter Additional Health Concerns Assessment Noted Time PHQ-9 Depression Total Score: 0 09/17/19 24 11:41 AM EST documented as of this encounter Care Teams Spline Rolling Machine Job Setter Relationship Specialty Start Date End Date Ericka Edmonds MD [address] [place] [address] PCP - General Family Medicine 09/08/18 documented as of this encounter
--- OUTSIDE RECORDS SUMMARY | 2025-01-24 11:00 | XMS_ITS | Encounter Summary ---
Author Organization [employer] Address [address] [facility] 7t [place] [address] Care Team Providers Care Credit Risk Analyst Name Role Phone Ericka Edmonds MD Primary Care Provider [phone] Encounter Details Date Type Department Care Team ([facility] st Contact Info) Description 09/02/2023 Telephone [facility] MEDICINE [address] [place] [address] Ericka Edmonds MD [address] [place], [place] [phone] Social History Tobacco Use Types Packs/Day Years [...] encounter Miscellaneous Notes * Telephone Encounter - Emmy Srivastava - 09/02/2023 3:46 PM EST Tc from Pt calling stating that if PCP will be sending medication pramipexole (Mirapex) 0.125 MG tablet after 4:30pm please to be sent to [facility]/pharmacy #[id number] - [place] - [address] [place] [address]. Due [facility] closed at 4:30. But if PCP Sent medication Tomorrow 09/03 it will be to [facility]. PCP Dr. Edmonds documented in this encounter Plan of Treatment Upcoming Encounters Date Type Department Care Team (Late st Contact Info) Description 04/20/2025 10:00 AM EDT Office Visit [facility] OPTOMETRY [address] [place] [address] Honorio, Vita, OD [address] [place] [address] documented as of this encounter Visit Diagnoses Not on filedocumented in this encounter Additional Health Concerns Assessment Noted Time PHQ-9 Depression Total Score: 2 04/30/20 23 9:15 AM EDT documented as of this encounter Care Teams Credit Risk Analyst Relationship Specialty Start Date End Date Ericka Edmonds MD [address] [place] [address] PCP - General Family Medicine 09/08/18 documented as of this encounter
--- OUTSIDE RECORDS SUMMARY | 2025-01-24 11:00 | XMS_ITS | Encounter Summary ---
Author Organization [employer] Address [address] [facility] 7[address] [place] [address] Care Team Providers Care Clinical Training Specialist Name Role Phone Ericka Edmonds MD Primary Care Provider [phone] Reason for Visit * Reason Onset Date Comments Nurse Triage 01/24/2025 Encounter Details Date Type Department Care Team ([facility] st Contact Info) Description 01/24/2025 Telephone [facility] MED [facility] PEDS [address] [place] [address] Ericka Edmonds MD [address] [place] [address] Nurse Triage Social History Tobacco Use Types Packs/Day Years [...] encounter Miscellaneous Notes * Telephone Encounter - Maria T Villafuerte RN - 01/24/2025 8:30 AM EDT No automotive parts interpreter needed as this chief writer speaks Hebrew. Call returned to Crissy Lombardi to triage below. Reports having upper back pain x 3 weeks. Per pt having bilateral arm pain as well. Per pt having burning pain from neck into both arms. No injury to back. No swelling of joints. Per pt mild swelling of both arms. No lower back pain, N/V, fever or CP. Pt advised of disposition, agrees to sick onsitetoday with team provider. Protocol Used: Back Pain (Adult) Protocol-Based Disposition: See in Office or Video Visit Today Future Appointments Date Time Provider Department Center 01/24/2025 9:45 AM Milton Mahan MD [facility] 04/20/2025 10:00 AM Vita Olmedo OD [facility] Insurance verified as active per Real Time Eligibility in [facility]. Positive Triage Question: * Numbness in an arm or hand (i.e., loss of sensation) and upper back pain * All higher-acuity triage questions were negative Care Advice Discussed: * Reassurance and Education - Back Pain * Cold or Heat * Pain Medicines * Reasons To Call Back - Fever occurs - You become worse * Telephone Encounter - Neha Sage - 01/24/2025 8:23 AM EDT Symptoms: Back Injury, Fever Outcome: Schedule an appointment to be seen within 24 hours Reason: Caller denied all higher acuity questions The caller accepted this outcome. Contact pt at [phone] (senegalese) documented in this encounter Plan of Treatment Upcoming Encounters Date Type Department Care Team (Late st Contact Info) Description 04/20/2025 10:00 AM EDT Office Visit [facility] OPTOMETRY [address] [place], [place] [phone] HonorioVita, OD [address] [place] [address] documented as of this encounter Visit Diagnoses Not on filedocumented in this encounter Additional Health Concerns Assessment Noted Time PHQ-9 Depression Total Score: 6 01/05/20 25 9:50 AM EDT documented as of this encounter Care Teams Clinical Training Specialist Relationship Specialty Start Date End Date Ericka Edmonds MD [address] [place] [address] PCP - General Family Medicine 09/08/18 documented as of this encounter
--- OUTSIDE RECORDS SUMMARY | 2025-01-24 11:00 | XMS_ITS | Encounter Summary ---
Author Organization [employer] Address [address] [facility] 7[address] [place] [address] Care Team Providers Care Body Recall Instructor Name Role Phone Ericka Edmonds MD Primary Care Provider [phone] Reason for Visit * Reason Onset Date Comments PA 06/07/2024 Encounter Details Date Type Department Care Team ([facility] Contact Info) Description 06/07/2024 Telephone [facility] CHC MED & PEDS [address] [place] [address] Ericka Edmonds MD [address] [place] [address] PA Social History Tobacco Use Types Packs/Day Years [...] encounter Miscellaneous Notes * Telephone Encounter - Verna Burger LPN - 06/07/2024 3:45 PM EDT Please review message below and advise. Thank you * Telephone Encounter - Michelle Fuchs - 06/07/2024 9:29 AM EDT Tc from pt requesting status on PA for medication pregabalin (Lyrica) 150 MG capsule. States has no more medication. documented in this encounter Plan of Treatment Upcoming Encounters Date Type Department Care Team (Late st Contact Info) Description 04/20/2025 10:00 AM EDT Office Visit [facility] OPTOMETRY [address] [place] [address] HonorioVita correa, OD [address] [place] [address] documented as of this encounter Visit Diagnoses Not on filedocumented in this encounter Additional Health Concerns Assessment Noted Time PHQ-9 Depression Total Score: 0 09/17/19 24 11:41 AM EST documented as of this encounter Care Teams Body Recall Instructor Relationship Specialty Start Date End Date Ericka Edmonds MD [address] [place] [address] PCP - General Family Medicine 09/08/18 documented as of this encounter
--- OUTSIDE RECORDS SUMMARY | 2025-01-24 11:00 | XMS_ITS | Encounter Summary ---
Author Organization [employer] Address [address] [facility] [address] [place] [address] Care Team Providers Care Entertainment Usher Name Role Phone Ericka Edmonds MD Primary Care Provider [phone] Reason for Visit * Reason Comments Med Refill Encounter Details Date Type Department Care Team ([facility] st Contact Info) Description 01/22/2025 Refill [facility] MED [facility] PEDS [address] [place], [place] [phone] Ericka Edmonds MD [address] [place], [place] [phone] Gastroesophageal reflux disease without esophagitis Social History Tobacco Use Types Packs/Day Years [...] Description 04/20/2025 10:00 AM EDT Office Visit [facility] OPTOMETRY [address] [place] [address] Honorio, Vita, OD [address] [place] [address] documented as of this encounter Visit Diagnoses Diagnosis Gastroesophageal reflux disease without esophagitis Esophageal reflux documented in this encounter Additional Health Concerns Assessment Noted Time PHQ-9 Depression Total Score: 6 01/05/20 25 9:50 AM EDT documented as of this encounter Care Teams Entertainment Usher Relationship Specialty Start Date End Date Ericka Edmonds MD [address] [place] [address] PCP - General Family Medicine 09/08/18 documented as of this encounter
--- OUTSIDE RECORDS SUMMARY | 2025-01-24 11:00 | XMS_ITS | Encounter Summary ---
Author Organization [employer] Address [address] [facility] [address] [place] [address] Care Team Providers Care Private Client Advisor Name Role Phone Ericka Edmonds MD Primary Care Provider [phone] Reason for Visit * Reason Comments Med Refill Encounter Details Date Type Department Care Team ([facility] st Contact Info) Description 04/09/2024 Refill [facility] MED & PEDS [address] [place] [address] Vani Coronado MD [address] [place] [address] Social History Tobacco Use Types Packs/Day Years [...] Description 04/20/2025 10:00 AM EDT Office Visit [facility] OPTOMETRY [address] [place] [address] Honorio, Vita, OD [address] [place] [address] documented as of this encounter Visit Diagnoses Not on filedocumented in this encounter Additional Health Concerns Assessment Noted Time PHQ-9 Depression Total Score: 0 09/17/19 24 11:41 AM EST documented as of this encounter Care Teams Private Client Advisor Relationship Specialty Start Date End Date Ericka Edmonds MD [address] [place] [address] PCP - General Family Medicine 09/08/18 documented as of this encounter
--- OUTSIDE RECORDS SUMMARY | 2025-01-24 11:00 | XMS_ITS | Encounter Summary ---
Author Organization [employer] Address [address] [facility] [address] [place] [address] Care Team Providers Care Rental Clerk Name Role Phone Ericka Edmonds MD Primary Care Provider [phone] Reason for Visit * Reason Onset Date Comments Nurse Triage 06/09/2023 Encounter Details Date Type Department Care Team ([facility] st Contact Info) Description 06/09/2023 Telephone [facility] CHC MED & PEDS [address] [place] [address] Ericka Edmonds MD [address] [place] [address] Nurse Triage Social History Tobacco Use Types Packs/Day Years Used Date Smoking Tobacco: Never Passive Smoke Exposure: Never Smokeless Tobacco: Never Depression Answer Date Recorded Patient Health Questionnaire-9 Score 2 04/30/2023 Depression Answer Date Recorded Patient Health Questionnaire-2 Score 1 04/30/2023 Comments Unknown Sex and Gender Information Value Date Recorded Sex Assigned at Female 07/08/2022 10:14 AM EDT Legal Sex Female 10:14 AM EDT Gender Identity Female 07/08/2022 10:14 AM EDT Sexual Orientation Straight 07/08/2022 10 :14 AM EDT documented as of this encounter Miscellaneous Notes * Telephone Encounter - Franny Godinez RN - 06/09/2023 2:58 PM EDT Triage call with [employer] Machine Operator [place] [id number] Pt reports right shoulder pain for months now. Pain is not subsiding , Pt is using apap/motrin andtakes lyrica but, it is not relieving this pain. Pt reports difficulty lifting right arm, frequently drops things when trying to grab something. Pt reports some numbness and weakness in the right arm. Denies injury. ASK apt with PCP 06/26/23 @ 1115am. Insurance is verified as active prior to booking. Protocol Used: Shoulder Pain (Adult) Protocol-Based Disposition: See in Office or Video Visit within 2 Weeks Video visit not offered Positive Triage Question: * Shoulder pain is a chronic symptom (recurrent or ongoing AND present > 4 weeks) * All higher-acuity triage questions were negative * Telephone Encounter - Michelle Fuchs - 06/09/2023 2:04 PM EDT Symptom: Shoulder Pain - Not From Injury Outcome: Schedule an appointment to be seen within 24 hours Reason: Caller denied all higher acuity questions The caller accepted this outcome documented in this encounter Plan of Treatment Upcoming Encounters Date Type Department Care Team (Late st Contact Info) Description 04/20/2025 10:00 AM EDT Office Visit [facility] OPTOMETRY [address] [place] [address] Vita Olmedo, OD [address] [place] [address] documented as of this encounter Visit Diagnoses Not on filedocumented in this encounter Additional Health Concerns Assessment Noted Time PHQ-9 Depression Total Score: 2 04/30/20 23 9:15 AM EDT documented as of this encounter Care Teams Rental Clerk Relationship Specialty Start Date End Date Ericka Edmonds MD [address] [place] [address] PCP - General Family Medicine 09/08/18 documented as of this encounter
--- OUTSIDE RECORDS SUMMARY | 2025-01-24 11:00 | XMS_ITS | Encounter Summary ---
Author Organization [employer] Address [address] [facility] [address] [place] [address] Care Team Providers Care Brusher Warp Name Role Phone Ericka Edmonds MD Primary Care Provider [phone] Encounter Details Date Type Department Care Team (Late Contact Info) Description 03/19/2023 Orders Only [facility] CHC MED & PEDS [address] [place], [place] [phone] Ericka Edmonds MD [address] [place], [place] [phone] Social History Tobacco Use Types Packs/Day Years Used Date Smoking Tobacco: Never Passive Smoke Exposure: Never Smokeless Tobacco: Never Comments Unknown Sex and Gender Information Value Date Recorded Sex Assigned at Female 07/08/2022 10:14 AM EDT Legal Sex Female 10:14 AM EDT Gender Identity Female 07/08/2022 10:14 AM EDT Sexual Orientation Straight 07/08/2022 10 :14 AM EDT documented as of this encounter Plan of Treatment Upcoming Encounters Date Type Department Care Team (Late Contact Info) Description 04/20/2025 10:00 AM EDT Office Visit [facility] OPTOMETRY [address] [place], [place] [phone] Vita Olmedo, OD [address] [place] [address] Pending Results Name Type Priority Associated Diagnoses Date /Time Tissue Transglutaminase (tTG ) Antibody (IgG) Lab Routine 03/19/2023 11:04 AM EDT Tissue Transglutaminase Antibody, IgA Lab Routine 03/19/2023 11:04 AM EDT Gliadin (Deamidated) Antibod y (IgA,IgG) Lab Routine 03/19/2023 11:04 AM EDT Immunoglobulin A Lab Routine 03/19/20 11:04 AM EDT Endomysial Antibody (IgA) Screen w/ Reflex to Titer Lab Routine 2022 11:04 AM EDT documented as of this encounter Procedures Procedure Name Priority Date/Time Associated Diagnosis Comments ENDOMYSIAL ANTIBODY (IGA) SCREEN WITH REFLEX TO TITER Routine 03/19/2023 11:04 AM EDT ENDOMYSIAL ANTIBODY (IGA) SCREEN WITH REFLEX TO TITER Routine 03/19/2023 11:04 AM EDT TSH W/REFLEX TO FT4 Routine 03/19/2023 1 1:04 AM EDT TISSUE TRANSGLUTAMINASE AB, IGG Routine 03/19/2023 11:04 AM EDT TISSUE TRANSGLUTAMINASE AB, IGG Routine 03/19/2023 11:04 AM EDT IRON AND TOTAL IRON BINDING CAPACITY Routine 03/19/2023 11:04 AM EDT GLIADIN (DEAMIDATED) AB (IGG, IGA) Routine 03/19/2023 11:04 AM EDT GLIADIN (DEAMIDATED) AB (IGG, IGA) Routine 03/19/2023 11:04 AM EDT TISSUE TRANSGLUTAMINASE AB, IGA Routine 03/19/2023 11:04 AM EDT TISSUE TRANSGLUTAMINASE AB, IGA Routine 03/19/2023 11:04 AM EDT HEMOGLOBIN A1C Routine 03/19/2023 11:04 AM EDT IMMUNOGLOBULIN A Routine 03/19/2023 11:0 4 AM EDT IMMUNOGLOBULIN A Routine 03/19/2023 11:0 4 AM EDT FERRITIN Routine 03/19/2023 11:04 AM EDT documented in this encounter Results * Endomysial Antibody (IgA) Screen w/ Reflex to Titer (03/19/2023 11:04 AM EDT) Endomysial Ab Screen (IgA) W/Refl to Titer Negative Negative [facility] Comment:THIS TEST WAS PERFOR MED AT:[facility] [place] [id number] JEONG MD,PHD Endomysial Ab Titer TNP [facility] 03/19/2023 11:0 4 AM EDT 03/19/2023 2:07 PM EDT Ericka Edmonds MD LAB BLOOD ORDERABLES Final Re sult Performing Organization Address [facility] Co de Phone Number [facility] [address] [place] [phone] * Gliadin (Deamidated) Antibody (IgA,IgG) (03/19/2023 11:04 AM EDT) Gliadin (Deamidated) Ab (IgA) <1.0 U/mL [facility] Comment:Value Interpretation ----- <15.0 Antibody not detected> or = 15.0 Antibody detected Gliadin (Deaminated) Antibody IgG <1.0 U/mL [facility] Comment:Value Interpretation ----- <15.0 Antibody not detected> or = 15.0 Antibody detectedTHIS TEST WAS PERFORMED AT:[facility] [address] [id number] ENLGE MD 03/19/2023 11:0 4 AM EDT 03/19/2023 2:07 PM EDT Ericka Edmonds MD LAB BLOOD ORDERABLES Final Re sult Performing Organization Address City/[facility] de Phone Number [facility] [address] [place] [phone] * Tissue Transglutaminase Antibody, IgA (03/19/2023 11:04 AM EDT) Transglutaminase IgA <1.0 U/mL [facility] Comment:Value Interpretation ----- <15.0 Antibody not detected> or = 15.0 Antibody detectedTHIS TEST WAS PERFORMED AT:[employer] [place] [phone] ENGLE MD 03/19/2023 11:0 4 AM EDT 03/19/2023 2:07 PM EDT Ericka Edmonds MD LAB BLOOD ORDERABLES Final Re sult Performing Organization Address [facility] de Phone Number [facility] [address] [place] [phone] * Tissue Transglutaminase (tTG) Antibody (IgG) (03/19/2023 11:04 AM EDT) Tissue Transglutaminase Antibody IgG 1.3 U/mL [facility] Comment:Value Interpretatio n----- <15.0 Antibody not detected> or = 15.0 Antibody detectedTHIS TEST WAS PERFORMED AT:[facility] [address] [phone] ENGLE MD 03/19/2023 11:0 4 AM EDT 03/19/2023 2:07 PM EDT Ericka Edmonds MD LAB BLOOD ORDERABLES Final Re sult Performing Organization Address [facility] de Phone Number [facility] [address] [place] [phone] * Immunoglobulin A (03/19/2023 11:04 AM EDT) Immunoglobulin A 169 47 - 310 mg/dL [facility] Comment:THIS TEST WAS PERFOR MED AT:[employer] [place] [phone] ENGLE MD 03/19/2023 11:0 4 AM EDT 03/19/2023 2:07 PM EDT Ericka Edmonds MD LAB BLOOD ORDERABLES Final Re sult Performing Organization Address [facility]/ZIP Co de Phone Number [facility] [address] [place] [phone] * TSH W/Reflex to FT4 (03/19/2023 11:04 AM EDT) TSH reflex Free T4 1.36 0.32 - 4.0 uIU/mL [facility] 03/19/2023 11:0 4 AM EDT 03/19/2023 2:07 PM EDT [facility] External Provider LAB BLO OD ORDERABLES Final Result Performing Organization Address [facility] Co de Phone Number [facility] [address] [place] [phone] * Ferritin (03/19/2023 11:04 AM EDT) Ferritin 72 10 - 250 ng/mL [facility] 03/19/2023 11:0 4 AM EDT 03/19/2023 2:07 PM EDT [facility] External Provider LAB BLO OD ORDERABLES Final Result Performing Organization Address [facility] Co de Phone Number [facility] [address] [place] [phone] * Iron And Total Iron Binding Capacity (03/19/2023 11:04 AM EDT) Iron 76 30 - 160 mcg/dL [facility] Total Iron Binding Capacity 288 228 - 428 mcg/dL [facility] Percent Iron Saturation 26 15 - 50 % [facility] Unsaturated Iron Binding 212 ug/dL [facility] 03/19/2023 11:0 4 AM EDT 03/19/2023 2:07 PM EDT [facility] External Provider LAB BLO OD ORDERABLES Final Result Performing Organization Address [facility] Co de Phone Number [facility] [address] [place] [address] [phone] * Hemoglobin A1c (03/19/2023 11:04 AM EDT) Hemoglobin A1c 7.6 % [facility] Comment:Hemoglobin A1C Refer ence Range Adults: 4.8 - 6.0 % Non diabetic: < 6.0 % Goal: < 7.0 %Additional Action Suggested: > 8.0 %Note: Hemoglobin A1c results are invalid for patients with abnormal amounts of HbF. Blood transfusions may impact the HbA1c concentration in the patient sample. Estimated Average Glucose 171 mg/dL [facility] Comment:eAG = Estimated ave rage glucose which is %A1C expressed asaverage glucose, using the formula of the G0I-ZgejrllJkceuue Glucose study (ADAG), Diabetes Care, Vol.31,#8,Apr. 2007 03/19/2023 11:0 4 AM EDT 03/19/2023 2:07 PM EDT [facility] External Provider LAB BLO OD ORDERABLES Final Result Performing Organization Address [facility] Co de Phone Number [facility] [address] [place] [phone] documented in this encounter Visit Diagnoses Not on filedocumented in this encounter Care Teams Brusher Warp Relationship Specialty Start Date End Date Ericka Edmonds MD [address] [place] [phone] PCP - General Family Medicine 09/08/18 documented as of this encounter
--- OUTSIDE RECORDS SUMMARY | 2025-01-24 11:00 | XMS_ITS | Encounter Summary ---
Author Organization [employer] Address [address] [facility] 7 [place] [address] Care Team Providers Care Post Adoption Coordinator Name Role Phone Ericka Edmonds MD Primary Care Provider [phone] Encounter Details Date Type Department Care Team ([facility] Contact Info) Description 06/08/[address] [facility] CHC MED & PEDS [address] [place], [place] [phone] Ericka Edmonds MD [address] [place] [address] Social History Tobacco Use Types Packs/Day Years [...] encounter Miscellaneous Notes * Telephone Encounter - Neha Sage - 06/08/2024 11:59 AM EDT Tc from pt regarding PA for pregabalin (Lyrica) 150 MG capsule. Social Work Msw advised pt PA is in process and can take 7-10 business days but it being worked on. Pt stated urgency of this medication and is requesting a call back. Contact pt at [phone] (australian) documented in this encounter Plan of Treatment Upcoming Encounters Date Type Department Care Team (Late st Contact Info) Description 04/20/2025 10:00 AM EDT Office Visit [facility] OPTOMETRY [address] [place] [address] Honorio, Vita, OD [address] [place] [address] documented as of this encounter Visit Diagnoses Not on filedocumented in this encounter Additional Health Concerns Assessment Noted Time PHQ-9 Depression Total Score: 0 09/17/19 24 11:41 AM EST documented as of this encounter Care Teams Post Adoption Coordinator Relationship Specialty Start Date End Date Ericka Edmonds MD [address] [place] [address] PCP - General Family Medicine 09/08/18 documented as of this encounter
--- OUTSIDE RECORDS SUMMARY | 2025-01-24 11:00 | XMS_ITS | Encounter Summary ---
Author Organization [employer] Address [address] [facility] [address] [place] [address] Care Team Providers Care Accounts Payable Bookkeeper Name Role Phone Ericka Edmonds MD Primary Care Provider [phone] Reason for Visit * Reason Comments Med Refill Encounter Details Date Type Department Care Team ([facility] Contact Info) Description 11/11/2022 Refill [facility] CHC MED & PEDS [address] [place] [address] Ericka Edmonds MD [address] [place] [address] Social History Tobacco Use Types Packs/Day Years Used Date Smoking Tobacco: Never Smokeless Tobacco: Never Comments Unknown Sex and Gender Information Value Date Recorded Sex Assigned at Female 07/08/2022 10:14 AM EDT Legal Sex Female 10:14 AM EDT Gender Identity Female 07/08/2022 10:14 AM EDT Sexual Orientation Straight 07/08/2022 10 :14 AM EDT COVID-19 Exposure Response Date Recorded In the last 10 days, have yo u been in contact with someone who was confirmed or suspected to have Coronavirus/COVID-19? No / Unsure 11/01/2022 8:50 AM EST documented as of this encounter Miscellaneous Notes * Telephone Encounter - Juliette Green - 11/11/2022 2:20 PM EST Received fax from Pulmonology at [facility] stating pt is scheduled for PFT on 11/12/22 @ 8:45am. documented in this encounter Plan of Treatment Upcoming Encounters Date Type Department Care Team (Late st Contact Info) Description 04/20/2025 10:00 AM EDT Office Visit [facility] OPTOMETRY [address] [place] [address] HonorioVita correa, OD [address] [place] [address] documented as of this encounter Visit Diagnoses Not on filedocumented in this encounter Care Teams Accounts Payable Bookkeeper Relationship Specialty Start Date End Date Ericka Edmonds MD [address] [place] [address] PCP - General Family Medicine 09/08/18 documented as of this encounter
--- OUTSIDE RECORDS SUMMARY | 2025-01-24 11:00 | XMS_ITS | Encounter Summary ---
Author Organization [employer] Address [address] [facility] [address] [place] [address] Care Team Providers Care Education Spec Name Role Phone Ericka Edmonds MD Primary Care Provider Reason for Visit * Reason Comments Med Refill Encounter Details Date Type Department Care Team ([facility] st Contact Info) Description 08/25/2024 Refill [facility] MED & PEDS [address] [place], [place] [phone] Ericka Edmonds MD [address] [place], [place] [phone] RLS (restless legs syndrome) Social History Tobacco Use Types Packs/Day Years [...] Description 04/20/2025 10:00 AM EDT Office Visit [facility] OPTOMETRY [address] [place] [address] Honorio, Vita, OD [address] [place] [address] documented as of this encounter Visit Diagnoses Diagnosis RLS (restless legs syndrome) Restless legs syndrome (RLS) documented in this encounter Additional Health Concerns Assessment Noted Time PHQ-9 Depression Total Score: 0 09/17/19 24 11:41 AM EST documented as of this encounter Care Teams Education Spec Relationship Specialty Start Date End Date Ericka Edmonds MD [address] [place] [address] PCP - General Family Medicine 09/08/18 documented as of this encounter
== END 2025-01-24 10:24 | disposition home or self-care (01) ==
LOC: HO.HMGCX 10:23
PROVIDERS: PCP Pediatrics; Visit Provider Internal Medicine
DX: M54.2 Cervicalgia (principal)
CPT/HCPCS: 72040

== ENCOUNTER → 2025-01-24 10:27 | Outpatient (BNV) | payer MEDICAID, SELFPAY | PROVIDERS: PCP Pediatrics; Visit Provider Radiology Diagnostic Radiology | DX: M54.2 Cervicalgia (principal) | CPT/HCPCS: 72040 ==

== ENCOUNTER 2025-03-02 12:54 | Outpatient (REF) | payer MEDICAID, SELFPAY ==
--- NOTE | ~2025-03-02 | XR_ITS ---
EXAMINATION: XR SHOULDER, RIGHT CLINICAL INFORMATION: 54 y/o with bilateral shoulder pain COMPARISON: None available. TECHNIQUE: Two views of the right shoulder. FINDINGS: Normal bone mineralization. No fracture, dislocation, or suspicious bone lesion. Normal alignment. The glenohumeral joint demonstrates early degenerative changes. The AC joint distance is mild degenerative changes. The acromion is mildly hypoplastic. There is a small superior surface spur. No undersurface spurring. The subacromial space is preserved. Remainder of the soft tissue and bony structures appear normal. XR/XR shoulder RT min 2V IMPRESSION: 1. No acute bony findings of the right shoulder. 2. Mild degenerative changes in the AC joint and glenohumeral joint. 3. Mildly hypoplastic acromion. Electronically signed by: Brennen Escamilla MD 03/02/2025 02:11 PM EDT
--- NOTE | ~2025-03-02 | XR_ITS ---
EXAMINATION: XR SHOULDER, LEFT CLINICAL INFORMATION: 54 y/o with chronic bilateral shoulder pain COMPARISON: None available. TECHNIQUE: Two views of the left shoulder. FINDINGS: Normal bone mineralization. No fracture, dislocation, or suspicious bone lesion. Normal alignment. The glenohumeral joint demonstrates early degenerative changes. The AC joint distance is mild degenerative changes. The acromion is mildly hypoplastic. There is a small superior surface spur. No undersurface spurring. The subacromial space is preserved. Remainder of the soft tissue and bony structures appear normal. XR/XR shoulder LT min 2V IMPRESSION: 1. No acute bony findings of the left shoulder. 2. Mild degenerative changes in the AC joint and glenohumeral joint. 3. Mildly hypoplastic acromion. Electronically signed by: Brennen Escamilla MD 03/02/2025 02:10 PM EDT
--- OUTSIDE RECORDS SUMMARY | 2025-03-02 15:03 | XMS_ITS | Clinical Summary ---
Author Organization [employer] Address [address] [place] [address] Care Team Providers Care Industrial Insulator Name Role Phone Ericka Edmonds MD Primary Care Provider [phone] Allergies Active Allergy Reactions Criticality Noted Date [...] times daily. 30 g 3 024 Active albuterol (Ventolin HFA) 108 (90 Base) MCG/ACT inhaler TAKE 2 PUFFS BY MOUTH EVERY 4 HOURS NEEDED FOR WHEEZE 18 g 1 024 Active glucose blood (FREESTYLE LITE) test strip USE TO TEST BLOOD SUGAR 3 TIMES A DAY 100 strip 8 Active TRUEplus Lancets 33G [facility] TEST BLOOD SUGAR 3 TIMES A DAY 100 each 8 024 Active fluticasone (Flonase Allergy Relief) 50 MCG/ACT nasal sprayIndications :Allergy, initial encounter Administer 1 spray into each nostril Once per day. Shake gently. Before first use, prime pump. After use, clean tip and replace cap. 16 g 12 024 2024 Active melatonin 5 MG tablet TAKE 2 TABLETS BY MOUTH AT BEDTIME 60 tablet 5 024 Active cholecalciferol VITAMIN D (Vitamin D-3) 50 MCG (1999 UT) capsuleIndicatio ns:Adjustment disorder with depressed mood [...] DAY IN THE MORNING 90 tablet 1 Active Ketotifen Fumarate 0.035 % solution INSTILL 1 DROP INTO EACH EYE ONCE DAILY FOR ALLERGIES 10 mL 3 025 Active magnesium oxide (Mag-Ox) 400 (240 Mg) MG tablet TAKE 1 TABLET BY MOUTH EVERY DAY 90 tablet 1 025 Active pregabalin (Lyrica) 150 MG capsule TAKE 1 CAPSULE BY MOUTH TWICE A DAY 60 capsule 3 025 Active Mounjaro 2.5 MG/0.5ML solution auto-injector INJECT ONE PEN (=2.5MG) SUBCUTANEOUSLY ONCE A WEEK DIRECTED Active omeprazole (PriLOSEC) [address] capsuleIndicatio ns:Gastroesophag eal reflux disease without esophagitis TAKE 1 CAPSULE BY MOUTH EVERY DAY BEFORE BREAKFAST 90 capsule 1 Active cyclobenzaprine (Flexeril) 10 MG tablet Take 1 tablet (10 mg) by mouth 3 times daily for 10 days. 30 tablet Active lidocaine (Lidoderm) 5 % patchIndications :Trochanteric bursitis of left hip APPLY 1 PATCH TO SKIN, LEAVE ON FOR 12 HOURS NEEDED FOR PAIN 30 patch 5 Active omega-3, EPA + DHA, (fish oil) 1000 MG capsule Take 1 capsule (1,000 mg) by mouth every 12 (twelve) hours. 60 capsule 3 Active pramipexole (Mirapex) 0.125 MG tabletIndication s:RLS (restless legs syndrome) TAKE 1 TABLET BY MOUTH TWICE A DAY 60 tablet Active ibuprofen 800 MG tabletIndication s:Median nerve neuritis, unspecified laterality TAKE 1 TABLET BY MOUTH 3 TIMES A DAY WITH FOOD NEEDED FOR PAIN 90 tablet 025 Active Mounjaro 5 MG/0.5ML solution auto-injector INJECT ONE PEN (=5MG) SUBCUTANEOUSLY ONCE A WEEK DIRECTED 025 Active pramipexole (Mirapex) 0.125 MG tabletIndication s:RLS (restless legs syndrome) TAKE 1 TABLET BY MOUTH TWICE A DAY 60 tablet 025 2024 Discontinued valACYclovir (Valtrex) 1 g tablet TAKE 1 TABLET BY MOUTH TWICE A DAY FOR 10 DAYS 20 tablet 025 2024 ibuprofen 800 MG tabletIndication s:Median nerve neuritis, unspecified laterality TAKE 1 TABLET BY MOUTH 3 TIMES A DAY WITH FOOD NEEDED FOR PAIN 90 tablet 025 2024 Discontinued Active Problems Problem Noted Date Diagnosed Date Neck pain 01/24/2025 Assessment & Plan (01/24/2025 11:12 AM EDT): Symptoms started over 1 month ago, refers feeling sharp pain, with pins and needles running through her arm that comes and goes, she also has hx of fibromyalgia which is currently active, has multiple tender points, will prescribe prednisone and cyclobenzaprine, xray will be ordered, refused PT, call back if no improvement in 2 weeks Discussed with patient xray results RLS (restless legs syndrome) 08/13/2023 Assessment & [...] refers having cough, fatigue, body aches, fever/chills. Paxlovid offered, risk vs benefits discussed, told to [...] Encounters Date Type Department Care Team Description 03/02/2025 11:15 AM EDT Office Visit [facility] [address] [place] [address] Ericka Edmonds MD Numbness and tingling in both hands (Primary Dx); Chronic pain of both shoulders 03/02/2025 Telephone [facility] [address] [place] [address] Ericka Edmonds MD Referral 03/02/2025 Orders Only [facility] [address] [place] [address] Ericka Edmonds MD Numbness and tingling in both hands (Primary Dx) 03/02/2025 Travel 02/24/2025 Refill [facility] [address] [place] [address] Ericka Edmonds MD Median nerve neuritis, unspecified laterality 02/23/2025 Patient Outreach [address] [address] Ericka Edmonds MD Pre-visit Planning ([facility] screening completed on 12/23/24) 02/16/[address] [place] [address] Ericka Edmonds MD Nurse Triage 02/04/2025 Refill [facility] [address] [place] [address] Ericka Edmonds MD RLS (restless legs syndrome) 01/25/2025 Refill [facility] [address] [place] [address] Ericka Edmonds MD Median nerve neuritis, unspecified laterality 01/24/2025 9:45 AM EDT Office Visit [facility] [address] [place] [address] Milton Frias MD Neck pain (Primary Dx); Type 2 diabetes mellitus without complication, without long-term current use of insulin ([facility]) 01/24/2025 Telephone [facility] [address], [place] [phone] Ericka Edmonds MD Results (Ericka Edmonds MD /Call and inform patient that her US shows signs of fatty liver disease as expected .Only treatment is what we have already discussed so far.Weight loss, exercise activity,etc. 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 to but she can start walking more,exercising with etc..thanks ///) 01/24/2025 Refill [facility] [address] [place] [address] Ericka Edmonds MD 01/24/2025 Refill [facility] [address] [place] [address] Ericka Edmonds MD Trochanteric bursitis of left hip 01/24/2025 Refill [facility] [address] [place] [address] Ericka Edmonds MD Median nerve neuritis, unspecified laterality 01/24/2025 Travel 01/24/2025 Telephone [facility] [address], [place] [phone] Ericka Edmonds MD Nurse Triage 01/22/2025 Refill [facility] [address] [place] [address] Ericka Edmonds MD Gastroesophageal reflux disease without esophagitis 01/04/2025 9:15 AM EDT Office Visit [facility] [address] [place] [address] Ericka Edmonds MD Breast cancer screening by mammogram (Primary Dx); Type 2 diabetes mellitus without complication, without long-term current use of insulin ([facility]); Transaminitis; Dietary counseling; Exercise counseling; Benign essential hypertension; Lumbar back pain with radiculopathy affecting left lower extremity; Routine general medical examination at a health care facility 01/04/2025 Travel 01/02/2025 Refill [facility] [address] [place] [address] Ericka Edmonds MD RLS (restless legs syndrome) 12/27/2024 Refill [facility] [address] [place] [address] Ericka Edmonds MD Median nerve neuritis, unspecified laterality 12/23/2024 Patient Outreach [facility] [address] [place] [address] Ericka Edmonds MD Pre-visit Planning (SDOH screening negative and Tobacco screening negative) 12/13/2024 Refill [facility] [address] [place] [address] Ericka Edmonds MD 12/02/2024 Telephone [facility] [address] [place] [address] Ericka Edmonds MD 12/02/2024 Orders Only [facility] [address] [place] [address] ProviderLuz MD from Last 3 Months Immunizations Immunization Administration [...] Sign Reading Time Taken Comments Blood Pressure 146/76 03/02/2025 11:14 AM EDT Pulse 76 03/02/2025 11:14 AM EDT Temperature 37.1 C (98.7 F) 03/02/2025 11:14 AM EDT Respiratory Rate 18 03/02/2025 11:14 AM EDT Oxygen Saturation 97% 03/02/2025 11:14 AM EDT Inhaled Oxygen Concentration - - Weight 97.5 kg (215 lb) 03/02/2025 11:14 AM EDT Height 160 cm (5' 3 ) 03/02/2025 11:14 AM EDT Body Mass Index 38.09 03/02/2025 11:14 AM EDT Plan of Treatment Upcoming Encounters Date Type Department Care Team (Late st Contact Info) Description 04/20/2025 10:00 AM EDT Office Visit [facility] [address] [place] [address] Honorio, Vita, OD [address] [place] [address] 06/02/2025 9:00 AM EDT Office Visit [facility] [address] [place] [address] Ericka Edmonds MD [address] [place] [address] Health Maintenance Due Date Last Done Comments [...] 12/23/2025 12/23/2024 Depression Screening 01/04/2026 01/04/2025, 01/05/20 Diabetes: Foot Exam 01/04/2026 01/04/2025, 01/04/2025, 01/04/2025, [...] Name Priority Date/Time Associated Diagnosis Comments XR SHOULDER 2+ VIEWS LEFT Routine 03/02/2025 12:22 PM EDT Numbness and tingling in both hands Chronic pain of both shoulders XR SHOULDER 2+ VIEWS RIGHT Routine 03/02/2025 12:19 PM EDT Numbness and tingling in both hands Chronic pain of both shoulders XR CERVICAL SPINE 2V Routine 01/24/2025 10:27 AM EDT POCT GLUCOSE Routine 01/24/2025 9:44 AM EDT Type 2 diabetes mellitus without complication, without long-term current use of insulin ([facility]) HM MAMMOGRAPHY Routine 01/14/2025 POCT GLUCOSE Routine 01/04/2025 9:37 AM EDT Type 2 diabetes mellitus without complication, without long-term current use of insulin ([facility]) HEMOGLOBIN A1C Routine 12/01/2024 9:01 AM EDT [...] Relevant to Health Maintenance Results * XR Shoulder 2+ Views Left (03/02/2025 12:22 PM EDT) Anatomical Region Laterality Modality Upper Extremities, Shoulder Left Radi ographic Imaging 03/02/2025 12:2 2 PM EDT Narrative 03/02/2025 2:13 PM EDT [facility] [place] [facility] [place] [address] XRay Report Signed Patient: Crissy Lombardi MR#: [id number] : 1970 Acct:[id number] Age/Sex: 54 / F ADM Date: 03/02/25 Loc: HO.HMGCX Attending Dr: Ericka Edmonds MD Ordering Physician: Ericka Edmonds MD Date of Service: 03/02/25 Procedure(s): XR shoulder LT min 2V Accession Number(s): [id number] cc: Ericka Edmonds MD EXAMINATION: XR SHOULDER, LEFT CLINICAL INFORMATION: 54 y/o with chronic bilateral shoulder pain COMPARISON: None available. TECHNIQUE: Two views of the left shoulder. FINDINGS: Normal bone mineralization. No fracture, dislocation, or suspicious bone lesion. Normal alignment. The glenohumeral joint demonstrates early degenerative changes. The AC joint distance is mild degenerative changes. The acromion is mildly hypoplastic. There is a small superior surface spur. No undersurface spurring. The subacromial space is preserved. Remainder of the soft tissue and bony structures appear normal. XR/XR shoulder LT min 2V IMPRESSION: 1. No acute bony findings of the left shoulder. 2. Mild degenerative changes in the AC joint and glenohumeral joint. 3. Mildly hypoplastic acromion. Electronically signed by: Brennen Escamilla MD 03/02/2025 02:10 PM EDT Dictated By: Brennen Escamilla MD Signed By: <Electronically signed by Brennen Escamilla MD in OV> 03/02/25 1410 DD/ 1222 TD/TT: 03/02/25 1325 Associate Professor Of Philosophy: Procedure Note Donotuseinterpreter, Image - 03/02/2025 [facility] [place] Primary Care [facility] [facility] [place] [address] XRay Report Signed Patient: Ever Lombardi#: [id number] : 1970Acct:[id number] Age/Sex: 54 / FADM Date: 03/02/25 Loc: HO.HMGCX Attending Dr: Ericka Edmonds MD Ordering Physician: Ericka Edmonds MD Date of Service: 03/02/25 Procedure(s): XR shoulder LT min 2V Accession Number(s): [id number] cc: Ericka Edmonds MD EXAMINATION: XR SHOULDER, LEFT CLINICAL INFORMATION: 54 y/o with chronic bilateral shoulder pain COMPARISON: None available. TECHNIQUE: Two views of the left shoulder. FINDINGS: Normal bone mineralization. No fracture, dislocation, or suspicious bone lesion. Normal alignment. The glenohumeral joint demonstrates early degenerative changes. The AC joint distance is mild degenerative changes. The acromion is mildly hypoplastic. There is a small superior surface spur. No undersurface spurring. The subacromial space is preserved. Remainder of the soft tissue and bony structures appear normal. XR/XR shoulder LT min 2V IMPRESSION: 1. No acute bony findings of the left shoulder. 2. Mild degenerative changes in the AC joint and glenohumeral joint. 3. Mildly hypoplastic acromion. Electronically signed by: Brennen Escamilla MD 03/02/2025 02:10 PM EDT Dictated By: Brennen Escamilla MD Signed By: <Electronically signed by Brennen Escamilla MD in OV> 03/02/25 1410 DD/ 1222 TD/TT: 03/02/25 1325 Associate Professor Of Philosophy: us Ericka Edmonds MD IMG XR PROCEDURES Final Resul t * XR Shoulder 2+ Views Right (03/02/2025 12:19 PM EDT) Anatomical Region Laterality Modality Upper Extremities, Shoulder Right Radi ographic Imaging 03/02/2025 12:1 9 PM EDT Narrative 03/02/2025 2:14 PM EDT [facility] Adult Primary Care [address] [place] [address] [place] [address] XRay Report Signed Patient: Crissy Lombardi MR#: [id number] : 1970 Acct:[id number] Age/Sex: 54 / F ADM Date: 03/02/25 Loc: HO.HMGCX Attending Dr: Ericka Edmonds MD Ordering Physician: Ericka Edmonds MD Date of Service: 03/02/25 Procedure(s): XR shoulder RT min 2V Accession Number(s): [id number] cc: Ericka Edmonds MD EXAMINATION: XR SHOULDER, RIGHT CLINICAL INFORMATION: 54 y/o with bilateral shoulder pain COMPARISON: None available. TECHNIQUE: Two views of the right shoulder. FINDINGS: Normal bone mineralization. No fracture, dislocation, or suspicious bone lesion. Normal alignment. The glenohumeral joint demonstrates early degenerative changes. The AC joint distance is mild degenerative changes. The acromion is mildly hypoplastic. There is a small superior surface spur. No undersurface spurring. The subacromial space is preserved. Remainder of the soft tissue and bony structures appear normal. XR/XR shoulder RT min 2V IMPRESSION: 1. No acute bony findings of the right shoulder. 2. Mild degenerative changes in the AC joint and glenohumeral joint. 3. Mildly hypoplastic acromion. Electronically signed by: Brennen Escamilla MD 03/02/2025 02:11 PM EDT Dictated By: Brennen Escamilla MD Signed By: <Electronically signed by Brennen Escamilla MD in OV> 03/02/25 1411 DD/ 1219 TD/TT: 03/02/25 1325 Associate Professor Of Philosophy: Procedure Note [place]eter, Image - 03/02/2025 [facility] Adult Primary Care [address] [place] [address] [place] [address] XRay Report Signed Patient: Rudy LombardiR#: [id number] : 1970Acct:[id number] Age/Sex: 54 / FADM Date: 03/02/25 Loc: HO.HMGCX Attending Dr: Ericka Edmonds MD Ordering Physician: Ericka Edmonds MD Date of Service: 03/02/25 Procedure(s): XR shoulder RT min 2V Accession Number(s): [id number] cc: Ericka Edmonds MD EXAMINATION: XR SHOULDER, RIGHT CLINICAL INFORMATION: 54 y/o with bilateral shoulder pain COMPARISON: None available. TECHNIQUE: Two views of the right shoulder. FINDINGS: Normal bone mineralization. No fracture, dislocation, or suspicious bone lesion. Normal alignment. The glenohumeral joint demonstrates early degenerative changes. The AC joint distance is mild degenerative changes. The acromion is mildly hypoplastic. There is a small superior surface spur. No undersurface spurring. The subacromial space is preserved. Remainder of the soft tissue and bony structures appear normal. XR/XR shoulder RT min 2V IMPRESSION: 1. No acute bony findings of the right shoulder. 2. Mild degenerative changes in the AC joint and glenohumeral joint. 3. Mildly hypoplastic acromion. Electronically signed by: Brennen Escamilla MD 03/02/2025 02:11 PM EDT Dictated By: Brennen Escamilla MD Signed By: <Electronically signed by Brennen Escamilla MD in OV> 03/02/25 1411 DD/ 1219 TD/TT: 03/02/25 1325 Associate Professor Of Philosophy: Ericka Edmonds MD IMG XR PROCEDURES Final Resul t * XR CERVICAL SPINE 2V (01/24/2025 10:27 AM EDT) Anatomical Region Laterality Modality Abdomen Radiographic Lida ging 01/24/2025 10:2 7 AM EDT Narrative 01/24/2025 10:46 AM EDT [facility] [place] Primary Care [facility] [place] [address] XRay Report Signed Patient: Crissy Lombardi MR#: [id number] : 1970 Acct:[id number] Age/Sex: 54 / F ADM Date: 01/24/25 Loc: HO.HMGCX Attending Dr: Milton Mahan MD Ordering Physician: Milton Frias MD Date of Service: 01/24/25 Procedure(s): XR cervical spine 2V Accession Number(s): [id number] cc: Ericka Edmonds MD; Milton Frias MD [...] 01/24/25 1043 DD/ 1027 TD/TT: 01/24/25 1033 Associate Professor Of Philosophy: Procedure Note Donotuseinterpreter, Image - 01/24/2025 [facility] [place] Primary Care [facility] [place] [address] XRay Report Signed Patient: Ever Lombardi#: [id number] : 1970Acct:[id number] Age/Sex: 54 / FADM Date: 01/24/25 Loc: HO.HMGCX Attending Dr: Milton Mahan MD Ordering Physician: Milton Frias MD Date of Service: 01/24/25 Procedure(s): XR cervical spine 2V Accession Number(s): [id number] cc: Ericka Edmonds MD; Calderón Mahan,Milton MD EXAMINATION: XR CERVICAL SPINE CLINICAL INFORMATION: [...] Brennen Escamilla MD 01/24/2025 10:43 AM EDT RP Dictated By: Brennen Escamilla MD Signed By: <Electronically signed by Brennen Escamilla MD in OV> 01/24/25 1043 DD/ 1027 TD/TT: 01/24/25 1033 Associate Professor Of Philosophy: Milton Mahan MD IMG XR PROCEDURES Edited Result - Final * (ABNORMAL) POCT Glucose (01/24/2025 9:44 AM EDT) Only the most recent of2 resultswithin the time period is included. [facility] Glucose Blood, POC 235(A) 60 - 200 mg/dL QC Media Lot # [id number] Lot# Expiration Date Blood Capillary blood specimen / Unknown 01/24/2025 9:44 AM EDT Milton Mahan MD POINT OF C ARE TEST ENTER/EDIT ORDERABLES Edited Result - Final * Mammography (01/14/2025) Pathologist [facility] Mammogram Normal Normal, Abnormal, BIRADS 1 , BIRADS 2 Anatomical Region Laterality Modality Other Ericka Edmonds MD HEALTH MAINTENANCE Final Resu lt * Hemoglobin A1c (12/01/2024 9:01 AM EDT) Blood Venous blood specimen / Unknown [facility] Provider LAB BLOOD ORDERABLES Liana l Result * Comprehensive Metabolic Panel (12/01/2024 9:00 AM EDT) Blood Venous blood specimen / Unknown Result [facility] Provider LAB BLOOD ORDERABLES Liana l Result * Albumin/Creatinine Ration, Timed Urine (12/01/2024 8:58 AM EDT) Urine Urine specimen obtained by clean catch procedure / Unknown Result [facility] Provider MD LAB URINE ORDERABLES Liana l Result * Hm Colonoscopy (07/04/2022) Pathologist [facility] Colonoscopy Normal Normal Narrative SheylaAylin corbin - 07/04/2022 Recommended 3 year follow up Result [facility] Provider HEALTH MAINTENANCE Edited Result - Final * (ABNORMAL) LIPID PANEL, STANDARD (05/30/2022 10:57 AM EDT) Chol/HDLC Ratio 3.5 <5.0 (calc) [facility] Cholesterol, Total 184 <200 mg/dL [facility] HDL Cholesterol 53 > OR = 50 mg/dL [facility] LDL Cholesterol 101(H) mg/dL (calc) [facility] Comment: Reference range: <100 Desirable range <100 mg/dL for primary prevention; <70 mg/dL for patients with CHD or diabetic patients with > or = 2 CHD risk factors. LDL-C is now calculated using the Brayden-Sam calculation, which is a validated novel method providing better accuracy than the Friedewald equation in the estimation of LDL-C. Brayden NIEVES et al. JALEN. 2013;310(19): 7814-2668 (http://education.uromovie/faq/IPV127) Non-HDL Cholesterol 131(H) <130 mg/dL (calc) [facility] Comment: For patients with diabetes plus 1 major ASCVD risk factor, treating to a non-HDL-C goal of <100 mg/dL (LDL-C of <70 mg/dL) is considered a therapeutic option. Triglycerides 188(H) <150 mg/dL [facility] 05/30/2022 10:5 7 AM EDT Ericka Edmonds MD LAB BLOOD ORDERABLES Final Re sult Performing Organization Address [facility] de Phone Number [facility] [address] [place] [address], * THINPREP PAP (08/01/2020 1:18 PM EST) Clinical Information: None given [facility] COMMENT SEE COMMENT [facility] Comment: EXPLANATORY NOTE: The Pap is a screening test for cervical cancer. It is not a diagnostic test and is subject to false negative and false positive results. It is most reliable when a satisfactory sample, regularly obtained, is submitted with relevant clinical findings and history, and when the Pap result is evaluated along with historic and current clinical information. Lead Software Engineer : SEE COMMENT [facility] Comment: DMM, CT(ASCP) CT screening location: [place] [address] Interpretation/R esult: Negative for intraepithelial lesion or malignancy. [facility] LMP: NONE GIVEN [facility] Prev. BX: NONE GIVEN [facility] Prev. PAP: NONE GIVEN [facility] SOURCE: None given [facility] Statement Of Adequacy: SEE COMMENT [facility] Comment: Satisfactory for evaluation. Endocervical/transformation zone component present. Age and/or menstrual status not provided 08/01/2020 1:18 PM EST us Hue Medina CNM LAB PATHOLOGY ORDERABLES Final Result Performing Organization Address [facility] de Phone Number [facility] [address] [place] [address], * HPV mRNA E6/E7 (08/01/2020 1:18 PM EST) HPV nRNA E6/E7 Not Detected Not Detected [facility] Comment: This test was performed using the APTIMA HPV Assay ([employer] This assay detects E6/E7 viral messenger RNA (mRNA) from 14 high-risk HPV types (16,18,31,33,35,39,45,51,52,56,58,59,66,68). The analytical performance characteristics of this assay have been determined by [employer]. The modifications have not been cleared or approved by the FDA. This assay has been validated pursuant to the CLIA regulations and is used for clinical purposes. 08/01/2020 1:18 PM EST us Hue Medina [facility] LAB BLOOD ORDERABLES Liana floyd Result [facility] [address] from Last 3 Months or Most Recently Relevant to Health Maintenance Insurance KATIE PARRA13 [facility] C3 * Guarantor: Crissy Lombardi Account Type Relation to Patient Date of Phone Billing Address Personal/[place] [address] * Guarantor: Crissy Lombardi Account Type Relation to Patient Date of Phone Billing Address Personal/[place] [address] * Guarantor: Crissy Lombardi Account Type Relation to Patient Date of Phone Billing Address Personal/[place] [address] Care Teams Industrial Insulator Relationship Specialty Start Date End Date Ericka Edmonds MD [address] [place] [id number] PCP - General Family Medicine 09/08/18
== END 2025-03-02 12:55 | disposition home or self-care (01) ==
LOC: HO.HMGCX 12:54
PROVIDERS: PCP Pediatrics; Visit Provider Pediatrics
DX: R20.0 Anesthesia of skin (principal); R20.2 Paresthesia of skin; M25.511 Pain in right shoulder; M25.512 Pain in left shoulder; G89.29 Other chronic pain
CPT/HCPCS: 73030

== ENCOUNTER → 2025-03-02 13:08 | Outpatient (BNV) | payer MEDICAID, SELFPAY | PROVIDERS: PCP Pediatrics; Visit Provider Radiology Diagnostic Radiology | DX: M25.512 Pain in left shoulder (principal); M25.511 Pain in right shoulder | CPT/HCPCS: 73030 ==

== ENCOUNTER 2025-04-14 16:03 | Outpatient (REF) | payer MEDICAID, SELFPAY ==
--- OUTSIDE RECORDS SUMMARY | 2025-04-14 16:05 | XMS_ITS | Clinical Summary ---
Author Organization [facility] Address [address] [address] Phone Care Team Providers Care Outside Residential Sales Professional Name Role Phone Ericka Edmonds MD Primary Care Provider [phone] Allergies Active Allergy Reactions Criticality Noted Date Comments Azithromycin Rash High 03/02/2013 Other reaction(s): Hives, SOB Clarithromycin Rash Low 04/27/2024 Dulaglutide 10/22/2022 Penicillins Rash Low 08/24/2010 Medications albuterol (VENTOLIN HFA) 90 mcg/actuation inhaler Take 2 puffs by mouth every 4 (four) hours as needed for shortness of breath/dyspnea . 4 Active cholecalciferol (VITAMIN D3) 2,000 unit capsule Take 1 capsule by mouth daily. 4 Active fexofenadine (JORDON) 180 MG tablet Take 180 mg by mouth daily. 4 Active fluticasone propionate (FLONASE) 50 mcg/actuation nasal spray 1 spray by Nasal route as needed for allergies. 3 Active hydroCHLOROthiazi de 25 MG tablet Take 25 mg by mouth every morning. Active ibuprofen (ADVIL,MOTRIN) 800 MG tablet Take 800 mg by mouth every 6 (six) hours as needed for pain (specific location in comments). Active ketotifen (ZADITOR) 0.025 % (0.035 %) ophthalmic solution Place 2 drops into each eye 2 (two) times a day as needed. Active lidocaine (LIDODERM) 5 % Place 1 patch onto the skin daily. 3 Active loratadine (CLARITIN) 10 mg tablet Take 10 mg by mouth daily. 3 Active magnesium aspart,citrate,ox miguelangel (TRIPLE MAGNESIUM COMPLEX) 400 mg magnesium Cap Take 400 mg by mouth 2 (two) times a day. 3 Active melatonin 5 mg Tab Take 10 mg by mouth nightly at bedtime as needed. 4 Active metoprolol succinate (TOPROL-XL) 50 MG 24 hr tablet Take 75 mg by mouth daily. Active omega 2-fwd-gza-fish oil 300 mg (120 mg- 180mg)-1,000 mg Cap Take 1 tablet by mouth 2 (two) times a day. 4 Active omeprazole (PRILOSEC) 40 MG capsule Take 40 mg by mouth daily. 3 Active pregabalin (LYRICA) 150 MG capsule Take 150 mg by mouth 2 (two) times a day. 4 Active triamcinolone acetonide 0.025 % cream Apply topically as needed. 3 Active metFORMIN (GLUCOPHAGE) 1000 MG tablet Take 1 tablet (1,000 mg total) by mouth 2 (two) times a day. 180 tablet 3 5 Active pramipexole (MIRAPEX) 0.125 MG tablet Take 0.125 mg by mouth 2 (two) times a day. 5 Active magnesium oxide (MAG-OX) 400 mg (241.3 mg elemental) tablet Take 1 tablet by mouth every morning. 5 Active FREESTYLE LITE Strp strips 1 each 3 (three) times a day before meals. 5 Active tirzepatide (MOUNJARO) 5 mg/0.5 mL PnIj subcutaneous penIndications:Ty pe 2 diabetes mellitus with hyperglycemia, without long-term current use of insulin Inject 0.5 mL (5 mg total) under the skin every 7 days. 2 mL 3 5 Active FREESTYLE LITE METER meter kitIndications:Ty pe 2 diabetes mellitus with hyperglycemia, without long-term current use of insulin To check blood glucose TID 1 each 5 Active Active Problems Problem Noted Date Diagnosed Date Type 2 diabetes mellitus wit h hyperglycemia, without long-term current use of insulin 12/04/2024 Assessment & Plan (02/01/2025 11:16 AM EDT): Control is unknown as the patient has not been able to check her glucose levels due to her meter breaking. Her glucose levels are likely running high after coming off of a 5 day prednisone burst. She is not using any medications to cause hypoglycemia. Will send in a prescription for a new meter. Will increase her mounjaro to 5 mg to help improve her control. Continue to work on eating healthy and try to be active. To call or message with any issues managing her glucose levels. Up to date with hao, scheduled to see in April. Will order labs at next appointment. I have maintained a long-term, longitudinal relationship with this patient, overseeing care of chronic conditions, including diabetes. This care relationship has significantly influenced my decision-making and treatment plans during today's encounter. Assessment & Plan (12/04/2024 9:58 AM EDT): 54-year-old woman with type 2 diabetes diagnosed around 7 years ago. She reports improvement in A1c close to 7 tested by PCP in 08/2024, waiting for records. Currently treated with 4.5 mg of Trulicity weekly and metformin 1000 mg twice a day. Patient continues to have stomach pain and nausea for 3 to 4 days after injecting the Trulicity making her skipping regular meals and drinking 3-4 8 ounce glass of juice daily instead. No frequent or severe hypoglycemia. -Will stop Trulicity -If nausea/stomach pain resolves after skipping a Trulicity dose we will try lowest dose, 2.5 mg Mounjaro weekly and titrate up dose monthly as needed. -Continue metformin 1000 mg twice a day -Advised against sugary juices and rather have regular carbohydrate controlled meals and water and a piece of fruit for snacks -Encouraged patient to start walking with goal of 30 minutes most days -Labs soon -Follow-up recheck in 2 months Severe obesity (BMI 35.0-39.9) with comorbidity 04/27/2024 Chronic venous hypertension (idiopathic) with other complications of right lower extremity 03/08/2024 Varicose veins of right lower leg 03/03/2024 RLS (restless legs syndrome) 08/13/2023 Overview (04/27/2024): Last Assessment & Plan: Patient that presented visit with complaints of RLS will be prescribed Pramipexole to ease concern. In addition, patient will be sent for labs for further evaluation. -Labs: Basic Met. Panel, CBC, Ferritin, Magnesium, TSH/FT4. Follow up with PCP. Trochanteric bursitis of left hip 05/08/2018 Lumbar radiculopathy 02/11/2018 Adjustment disorder with depressed mood 09/19/19 16 Benign essential hypertension 09/19/2015 Type 2 diabetes mellitus wit hout complication, without long-term current use of insulin 04/22/2013 Assessment & Plan (04/27/2024 1:27 PM EDT): She was diagnosed with type 2 diabetes in 2017 or 2018. She was in the hospital for something else and noticed she was unable to see the wall clock. She went to her PCP and found her glucose levels to be very high. She has no known complications from the diabetes at this time. Her control has improved based upon her last A1C of 8.2% after previously in the 's. Her A1C had been higher due to coming off of the trulicity due to nausea. She restarted the trulicity 2 months ago and her glucose levels have improved. She has used trulicity for 4 or 5 years. She has been on metformin since diagnosis. She is not using any medications to cause hypoglycemia. Discussed pathophysiology of diabetes and complications of uncontrolled diabetes. Discussed progressive nature of disease. Discussed rationale & goals for control. Role of diet, exercise, medications. Role of & goals for HbA1c & SMBG. She is going to try and very her SMBG tests to see control throughout the day. She asks about a sensor but with her insurance we would not be able to get it covered for her without being on insulin. Reviewed options to improve control with risks & benefits, including intensification of lifestyle & available medications. Discussed that with her only 2 months into being back on the trulicity and her A1C improving, we will maintain her current regimen. Will have her come back in 8 weeks and at that time check her A1C. If it continues to improve will maintain her regimen. If it stays the same or worsens will look into changing her medication to mounjaro. She is agreeable with this plan. Continue to work on eating healthy & keeping active. To call or send in log with problems with glucose control. Foot & nail care good. Up to date with hao, to request report be sent here. Will order labs at next visit. Patient's case discussed with Dr Wallace Encounters Date Type Department Care Team Description 02/01/2025 10:40 AM EDT Office Visit [facility] [address] [place] [address] Paloma Arevalo PA-C Type 2 diabetes mellitus with hyperglycemia, without long-term current use of insulin (Primary Dx) from Last 3 Months Social History Tobacco Use Types Packs/Day Years Used Date Smoking Tobacco: Never Smokeless Tobacco: Never Tobacco Cessation:Counseling Given: Not Answered Alcohol Use Standard Drinks/Week Comments Never 0 (1 standard drink = 0.6 oz pur e alcohol) Education Answer Date Recorded Are you interested in more education? Not on darell e 01/06/2024 Are you concerned about learning? Not on file 01/06/2024 No 01/06/2024 No 01/06/2024 Digital Access Answer Date Recorded No 01/06/2024 No 01/06/2024 Reliable internet access at home? Not on file 01/06/2024 Device with a working camera? Not on file Comments Unknown Sex and Gender Information Value Date Recorded Sex Assigned at Not on file Legal Sex Female 8:17 AM EDT Gender Identity Not on file Sexual Orientation Not on file Last Filed Vital Signs Vital Sign Reading Time Taken Comments Blood Pressure 126/54 02/01/2025 10:29 AM EDT Pulse 82 02/01/2025 10:29 AM EDT Temperature - - Respiratory Rate - - Oxygen Saturation 94% 02/01/2025 10:29 AM EDT Inhaled Oxygen Concentration - - Weight 96.4 kg (212 lb 9.6 oz) 02/01/2025 10:29 AM EDT Height 157 cm (5' 1.81 ) 02/01/2025 10:29 AM EDT Body Mass Index 39.12 02/01/2025 10:29 AM EDT Plan of Treatment Upcoming Encounters Date Type Department Care Team (Late Contact Info) Description 08/09/2025 11:00 AM EST Office Visit [facility] [address] [place] [address] [place] [address] Candy Wallace MD [address] [place] [phone] [email or web address] Health Maintenance Due Date Last Done Comments DEPRESSION SCREENING 1981 HEPATITIS C SCREENING 1987 HIV ONE-TIME SCREENING (18-65 YEARS) 1987 PAP SMEAR 1990 MAMMOGRAM 2009 COLOGUARD 2014 COLONOSCOPY 2014 COLORECTAL CANCER SCREENING 2014 FIT TEST 2014 FOBT 2014 SIGMOIDOSCOPY 2014 VIRTUAL COLONOSCOPY 2014 PNEUMOCOCCAL VACCINES (50+ years) (2 of 2 - PCV) 05/18/2014 05/18/2013, 03/05/2013 ZOSTER VACCINES (1 of 2) 2019 LIPID PANEL 05/30/2023 05/30/2022 DIABETIC EYE EXAM 04/27/2024 COVID-19 VACCINE (1 - season) 2024 HEMOGLOBIN A1C 03/03/2025 12/01/2024, 0302/2025, 06/24/2024, Additional history exists BLOOD PRESSURE 08/04/2025 02/01/2025 CREATININE LEVEL 12/01/2025 12/01/2024 POTASSIUM LEVEL 12/01/2025 12/01/2024 URINE MICROALBUMIN/CREATININE RATIO 12/01/2025 12/01/2024 Adult Td,Tdap Booster 07/14/2029 07/14/2019 SMOKING STATUS SCREENING (Once After 26 Yrs) Completed 02/01/2025 HEPATITIS A VACCINES Aged Out No long er eligible based on patient's age to complete this topic HIB VACCINES Aged Out No longer eligi ble based on patient's age to complete this topic MENINGOCOCCAL VACCINES (ACWY) Aged Out No longer eligible based on patient's age to complete this topic MENINGOCOCCAL VACCINES (B) Aged Out N o longer eligible based on patient's age to complete this topic Medical Devices Not on file Procedures Procedure Name Priority Date/Time Associated Diagnosis Comments MICROALBUMIN/CREATININ E RATIO, RANDOM URINE Routine 12/01/2024 11:51 AM EDT Type 2 diabetes mellitus without complication, without long-term current use of insulin HEMOGLOBIN A1C Routine 12/01/2024 11:32 AM EDT Type 2 diabetes mellitus without complication, without long-term current use of insulin COMPREHENSIVE METABOLIC PANEL Routine 12/01/2024 11:32 AM EDT Type 2 diabetes mellitus without complication, without long-term current use of insulin from Last 3 Months or Most Recently Relevant to Health Maintenance Results * Microalbumin/creatinine ratio, random urine (12/01/2024 11:51 AM EDT) Pathologist [facility] URINE MICROALBUMIN <1.2 0 - 2.3 mg/dL [facility] URINE CREATININE 96 mg/dL [facility] MICROALB/CRE RATIO NOT CALCULATED 0 - 20 mg/g Cre [facility] Comment:due to Microalbumin <1.2 Urine (Urine) 12/01/2024 11: 51 AM EDT 12/01/2024 11:53 AM EDT us Candy Wallace MD URINE ORDERABLES Final Result [address] [address] * (ABNORMAL) Comprehensive metabolic panel (12/01/2024 11:32 AM EDT) SODIUM 137 133 - 146 mmol/L [facility] POTASSIUM 4.1 3.3 - 5.1 mmol/L [facility] CHLORIDE 100 96 - 108 mmol/L [facility] CO2 26 21 - 35 mmol/L [facility] BUN 11 6 - 19 mg/dL [facility] CREATININE 0.50 0.5 - 1.5 mg/dL [facility] GLUCOSE 263(H) 70 - 99 mg/dL [facility] ALBUMIN 4.3 3.9 - 4.8 g/dL [facility] TOTAL PROTEIN 7.4 6.5 - 8.0 g/dL [facility] CALCIUM 9.2 8.4 - 10.3 mg/dL [facility] ALKALINE PHOSPHATASE 105 39 - 117 U/L [facility] TOTAL BILIRUBIN <0.2 0.0 - 1.2 mg/dL [facility] AST 42(H) 0 - 37 U/L [facility] ALT 60(H) 0 - 40 U/L [facility] GLOBULIN 3.1 1 - 4.8 g/dL [facility] EGFR 111 >59 mL/min/1.7 3m2 [facility] Comment:Estimated glomerular filtration rate calculated using the CKD-EPI refit equation. ANION GAP 15 10 - 20 mmol/L [facility] Blood 12/01/2024 11:3 2 AM EDT 12/01/2024 11:40 AM EDT us Candy Wallace MD LAB BLOOD ORDERABLES Final Res ult Performing Organization Address City/[facility]/ZIP Co de Phone Number [address] [address] * (ABNORMAL) Hemoglobin A1c (12/01/2024 11:32 AM EDT) HEMOGLOBIN A1C 8.8(H) 4.3 - 5.8 % [facility] Blood 12/01/2024 11:3 2 AM EDT 12/01/2024 11:41 AM EDT us Candy Wallace MD LAB BLOOD ORDERABLES Final Res ult [address] [address] from Last 3 Months or Most Recently Relevant to Health Maintenance Insurance [facility] [employer] [facility] C3 [facility] C3 A[facility] [employer]3 [employer] [place] [id number] [facility] [employer] [place] [id number] Care Teams Outside Residential Sales Professional Relationship Specialty Start Date End Date Ericka Edmonds MD [address] [place] [address] [place] [id number] PCP - General Internal Medicine 01/06/24 Additional Source Comments The information contained in this document represents components of the legal health record. It is not the complete legal health record.[facility]
[2025-04-14 17:36] LABS: MANUAL DIFF FLAG NO
[2025-04-14 18:01] LABS: Hematocrit 40.1 % (37.0-47.0); Hemoglobin 13.1 g/dl (12.0-16.0); Imm Gran Abs Auto 0.05 X10*3/uL (0.00-0.03); Imm Gran Pct Auto 0.4 % (0.0-0.4); Lymphocytes Absolute Auto 3.1 X10*3/uL (1.2-4.9); Mean Corpuscular HGB Conc 32.7 g/dl (31.0-35.0); Mean Corpuscular Hemoglobin 28.7 pg (27.0-33.0); Mean Corpuscular Volume 87.7 fL (80.0-98.0); NRBC Abs Auto 0.000 X10*3/uL (0.0-0.012); NRBC Pct Auto 0.0 /100WBC (0.0-0.2); Platelet Count 355 X10*3/uL (160-400); Red Blood Count 4.57 X10*6/uL (4.20-5.50); White Blood Count 13.8 X10*3/uL (4.8-10.8)
[2025-04-14 18:22] LABS: Alanine Aminotransferase 64 U/L (0-31); Albumin Level 4.5 g/dL (3.5-5.0); Alkaline Phosphatase 102 U/L (39-117); Anion Gap 16 (12-20); Aspartate Amino Transferase 38 U/L (5-31); Blood Urea Nitrogen 16 mg/dL (9-16); Calcium 9.7 mg/dL (8.4-10.2); Carbon Dioxide 24 mmol/L (22-29); Chloride 100 mmol/L (96-108); Estimated Glomerular Filt Rate > 60; Potassium 3.8 mmol/L (3.3-5.1); Sodium 136 mmol/L (135-145); Total Protein 7.5 g/dL (6.5-8.0)
[2025-04-14 18:45] LABS: Folate 17.4 ng/mL (> or = 4.0); Vitamin B12 474 pg/mL (200-900)
== END 2025-04-14 16:04 | disposition home or self-care (01) ==
LOC: HO.CHCLDS 16:03
PROVIDERS: Visit Provider Pediatrics
DX: E11.9 Type 2 diabetes mellitus without complications (principal); R25.2 Cramp and spasm; E55.9 Vitamin D deficiency, unspecified
CPT/HCPCS: 36415; 80048; 80076; 82306; 82607; 82746; 85025